=== PATIENT | female | born 1945 | race Caucasian/White ===

== ENCOUNTER 2019-09-03 11:28 | Outpatient (CLI) | payer MEDICARE, OTHER, SELFPAY ==
--- NOTE | 2019-09-03 11:42 | XR_ITS ---
WS: [id number] ABDOMEN Supine view of the abdomen CLINICAL INFORMATION: ABD PAIN, EPIGASTRIC COMPARISON: None. FINDINGS: Scattered air normal caliber small and large bowel. No significant bowel distention. Mild lumbar cur ve convex right. Mild constipation. XR/XR abdomen 1V* [id number] IMPRESSION: Mild constipation.
--- NOTE | 2019-09-03 11:42 | XR_ITS ---
WS: [id number] PROCEDURE: XR chest 2V* [id number] CLINICAL INFORMATION: ABD PAIN, EPIGASTRIC COMPARISON: January 24, 2019 FINDINGS: Heart: Cardiomegaly with esophageal hiatal hernia and air-fluid level. Cholecystectomy clips. Lungs: Lungs are clear. No consolidation or pleural fluid. Chronic emphysematous changes. Bones: Normal visualized bony structures. XR/XR chest 2V* [id number] IMPRESSION: 1. Cardiomegaly with esophageal hiatal hernia and air-fluid level. This is unc hanged since 2019. 2. Chronic emphysematous changes. No acute-appearing pulmonary infiltrates.
== END 2019-09-03 11:29 | disposition home or self-care (01) ==
LOC: RADWPI 11:34
PROVIDERS: Family Provider Electrodiagnostic Medicine; PCP Electrodiagnostic Medicine; Visit Provider Electrodiagnostic Medicine
DX: K25.9 Gastric ulcer, unspecified as acute or chronic, without hemorrhage or perforation (principal); I51.7 Cardiomegaly; K44.9 Diaphragmatic hernia without obstruction or gangrene; J43.9 Emphysema, unspecified; K59.00 Constipation, unspecified; R10.13 Epigastric pain
CPT/HCPCS: 71046; 74018

== ENCOUNTER 2020-02-17 13:47 | Outpatient (CLI) | payer MEDICARE, OTHER, SELFPAY ==
--- NOTE | 2020-02-17 13:55 | MM_ITS ---
WS: [id number] BILATERAL SCREENING DIGITAL MAMMOGRAM WITH CAD HISTORY: SCREENING COMPARISON: 10/27/2018 and 11/15/2016 Bilateral CC and MLO views submitted. Computer aided detection analyzed. Breast composition: There are scattered areas of fibroglandular density. No suspicious masses, microc alcifications or architectural distortion. Benign calcifications RIGHT breast. MM/[place] [id number] IMPRESSION: BI-RADS: 2-Benign FOLLOW UP: 1 Year Follow-up
== END 2020-02-17 13:48 | disposition home or self-care (01) ==
PROVIDERS: PCP Electrodiagnostic Medicine; Visit Provider Electrodiagnostic Medicine
DX: Z12.31 Encounter for screening mammogram for malignant neoplasm of breast (principal)
CPT/HCPCS: 77067

== ENCOUNTER 2020-10-19 20:00 | Outpatient (CLI) | payer MEDICARE, OTHER, SELFPAY | END 2020-10-19 20:01 | disposition home or self-care (01) | LOC: SLEEP 10-20 08:39 | PROVIDERS: PCP Electrodiagnostic Medicine; Visit Provider Electrodiagnostic Medicine | DX: G47.33 Obstructive sleep apnea (adult) (pediatric) (principal) | CPT/HCPCS: 95810 ==

== ENCOUNTER 2021-03-30 08:59 | Outpatient (CLI) | payer MEDICARE, OTHER, SELFPAY ==
--- NOTE | 2021-03-30 09:07 | MM_ITS ---
WS: [id number] BILATERAL DIGITAL SCREENING MAMMOGRAPHY WITH CAD CLINICAL INFORMATION: SCREENING HISTORY: Screening mammogram. No current complaints. COMPARISON: February 17, 2020 TECHNIQUE: Bilateral CC and MLO views. FINDINGS: Scattered fibroglandular densities bilaterally. No suspicious focal mass, asymmetry, calcifications, or architectural distortion. No evidence of malignancy. A few tiny punctate calcifications. MM/[place] [id number] IMPRESSION: BI-RADS: 2-Benign FOLLOW UP: 1 Year Follow-up Recommend return to annual screening mammography.
== END 2021-03-30 09:00 | disposition home or self-care (01) ==
LOC: RADSHAW 09:04
PROVIDERS: PCP Electrodiagnostic Medicine; Visit Provider Electrodiagnostic Medicine
DX: Z12.31 Encounter for screening mammogram for malignant neoplasm of breast (principal)
CPT/HCPCS: 77067

== ENCOUNTER 2021-06-27 08:58 | Emergency (ER) | payer MEDICARE, OTHER, SELFPAY ==
--- NOTE | 2021-06-27 09:06 | W.ED.GENADLT ---
HPI - General Adult General: Chief complaint: Dizziness Stated complaint: VERTIGO, NAUSEA, BRADYCARDIA Time Seen by Provider: 06/27/21 09:04 History of Present Illness: HPI narrative: 76-year-old female presents to the emergency room with sudden onset of dizziness and nausea vertiginous-like symptoms. She notes that it is brought on by turning her head to the right. She notes that she turns her head just past the midline to the left electively relieve her symptoms. She has not had any difficulty with speech swallowing or vision. When she has these episodes she does have some difficulty with balance because of the vertiginous symptoms. We were able to reproduce the symptoms during exam when she turned her head to the right when she was able to relieve them by turning the head back to the left just past the midline. He denies any chest pain denies any headache. Onset (ago): minute(s) Severity: mild Relieving factors: none Exacerbating factors: none Associated symptoms: Deny chest pain, confusion, cough, diaphoresis, decreased appetite, dyspnea, fevers/chills, headache(s), malaise, nausea, rash, palpitations, seizures, short of breath, syncope, vomiting or weakness Review of Systems Const: Denies: malaise or diaphoresis Card: Denies: chest pain, palpitations or syncope Resp: Denies: dyspnea GI: Denies: nausea or vomiting Skin/Breast: Denies: rash Neuro: Denies: headache(s) or confusion [facility] ED PFSH: Medical History (Updated 06/27/21 @ 10:32 by Paul Ibanez DO) BPPV (benign paroxysmal positional vertigo) Hypothyroidism Surgical History (Updated 06/27/21 @ 09:49 by Paul Ibanez DO) H/O partial thyroidectomy Social History (Updated 06/27/21 @ 09:49 by Paul Ibanez DO) Smoking and tobacco status: never smoked Alcohol intake: never Physical Exam Const: COMMON NORMALS: no acute distress GENERAL APPEARANCE: cooperative and comfortable ORIENTATION/CONSCIOUSNESS: Yes awake, Yes oriented to person, Yes oriented to place and Yes oriented to time HENMT: COMMON NORMALS: normocephalic, atraumatic and hearing grossly normal bilaterally HEAD & SCALP: normocephalic and atraumatic Neck/C-Spine: COMMON NORMALS: no JVD Resp: COMMON NORMALS: normal respiratory effort, No retractions, No use of accessory muscles and clear to auscultation bilaterally AUSCULTATION: clear to auscultation bilaterally Cardio: COMMON NORMALS: no JVD, regular rate, regular rhythm and No murmurs present (Cardio) RATE: regular rate RHYTHM: regular rhythm GI: COMMON NORMALS: Soft to palpation and No hepatosplenomegaly present AUSCULTATION: Yes normoactive bowel sounds PALPATION: Yes Soft to palpation, No Tenderness to palpation present (GI), No Guarding due to palpation present (GI) and Yes No hepatosplenomegaly present Extremity: COMMON NORMALS: normal to inspection, capillary refill normal, no clubbing, cyanosis or edema, no calf tenderness and no pedal edema Neuro: SENSORIUM/ORIENTATION: Yes oriented to person, Yes oriented to place and Yes oriented to time Skin: COMMON NORMALS: no rashes or lesions noted GENERAL SKIN EXAM: no rashes or lesions noted Course Vital Signs: Vital signs: Vital Signs Pulse Rate 113 H 06/27/21 10:42 Respiratory Rate 20 H 06/27/21 10:42 Blood Pressure 109/67 06/27/21 10:42 Pulse Oximetry 92 06/27/21 10:42 MDM - General Adult MDM Narrative: Medical decision making narrative: Symptoms reproducible during exam with motion of the head. Ativan is completely resolved symptoms. [place] discharge patient home is meclizine or Ativan as needed for subcu bruit follow-up with primary care. Lab Data: Labs: Lab Results 06/27/21 06/27/21 09:18 09:18 WBC 5.3 10^3/uL 10^3/ uL (4.0-10.0) RBC 4.13 10^6/uL 10^6 /uL (4.1-5.3) Hgb 13.0 g/dL g/dL (11.5-15.3) Hct 38.1 % % (37.0-47.0) MCV 92.3 fl fl (81-99) MCH 31.5 pg pg (28.0-34.0) MCHC 34.1 g/dL g/dL (30.0-36.0) RDW 12.6 % % (12.1-15.1) Plt Count 238 10^3/cmm 10^3 /cmm (130-400) MPV 9.6 fL fL (7.4-10.4) Neut % (Auto) 72.2 % % Lymph % (Auto) 20.0 % % [place] % (Auto) 5.3 % % Eos % (Auto) 1.5 % % Baso % (Auto) 0.8 % % Neut # (Auto) 3.83 10^3/uL 10^3 /uL (1.8-7.7) Lymph # (Auto) 1.1 10^3/uL 10^3/ uL (0.8-4.8) [place] # (Auto) 0.3 10^3/uL 10^3/ uL (0.2-0.9) Eos # (Auto) 0.1 10^3/uL 10^3/ uL (0.0-0.8) Baso # (Auto) 0.0 10^3/uL 10^3/ uL (0.0-0.1) Nucleated RBC % (a uto) 0 % % Nucleated RBCs # 0.0 /100WBC /100W BC Sodium 139 mmol/L mmol/L (136-145) Potassium 4.0 mmol/L mmol/L (3.5-5.1) Chloride 107 mmol/L mmol/L (98-107) Carbon Dioxide 19 mmol/L L mmol/ L (22-29) Anion Gap 17.0 (5-19) BUN 16 mg/dL mg/dL (8-23) Creatinine 0.9 mg/dL mg/dL (0.5-0.9) GFR Calculation Not Reportable Glucose 91 mg/dL mg/dL (65-115) Calculated Osmolal ity 289 mOsm/kg mOsm/ kg (285-295) Calcium 8.4 mg/dL L mg/dL (8.5-10.5) Discharge Plan Discharge Patient Disposition: Home Clinical Impression: BPPV (benign paroxysmal positional vertigo) Condition: Stable Prescriptions: New meclizine 25 mg tablet 25 mg PO QID PRN (Reason: dizziness) Qty: 30 RF: 0 Ativan 2 mg tablet 1 - 2 mg PO Q8H PRN (Reason: dizziness or vertigo) Qty: 20 RF: 0 Discharge Orders: Discharge ED (Routine); Ordered 06/27/21 Ordered By: Paul Ibanez Referrals: Dionicio Valentine, DO [Primary Care Provider] - Discharge Diet: Regular Discharge Activity: Limit activity as instructed Patient Instructions: Opioid Safety Activity Restrictions/Additional Instructions: Follow-up with your primary care doctor return to the emergency room if you are not improving or have any worsening of your symptoms. Coding Level of Care Code ED Distributor Advertising Material for Zoey Fwd Exam Comprehensive
[2021-06-27 09:07] VITALS: BP 139/72; PULSE 59; RESP 19; O2SAT 98; BMI 25.8
[2021-06-27] MEDS: LORazepam 2 mg/mL INJ 1 mL 1 MG IVP (09:20)
[2021-06-27 09:52] LABS: Basophils % 0.8 %; Eosinophils # 0.1 10^3/uL (0.0-0.8); Eosinophils % 1.5 %; Hematocrit 38.1 % (37.0-47.0); Lymphocytes # 1.1 10^3/uL (0.8-4.8); Mean Corpuscular HGB Conc 34.1 g/dL (30.0-36.0); Mean Corpuscular Hemoglobin 31.5 pg (28.0-34.0); Mean Corpuscular Volume 92.3 fl (81-99); Mean Platelet Volume 9.6 fL (7.4-10.4); Monocytes # 0.3 10^3/uL (0.2-0.9); Monocytes % 5.3 %; Neutrophils # 3.83 10^3/uL (1.8-7.7); Neutrophils % 72.2 %; Nucleated Red Blood Cells % 0 %; Platelet Count 238 10^3/cmm (130-400); Red Blood Count 4.13 10^6/uL (4.1-5.3); Red Cell Distribution Width 12.6 % (12.1-15.1); White Blood Count 5.3 10^3/uL (4.0-10.0)
[2021-06-27 10:02] LABS: Blood Urea Nitrogen 16 mg/dL (8-23); Calcium 8.4 mg/dL (8.5-10.5); Carbon Dioxide 19 mmol/L (22-29); Chloride 107 mmol/L (98-107); Glucose 91 mg/dL (65-115); Osmolality Calculated 289 mOsm/kg (285-295); Sodium 139 mmol/L (136-145)
[2021-06-27 10:42] VITALS: BP 109/67; PULSE 113; RESP 20; O2SAT 92
--- NOTE | 2021-06-27 10:56 | PC.NURSE ---
discharge instructions reviewed with patient and , both verbalize understanding of instructions, prescriptions and follow up appt. pt taken to lobby via wheelchair
== END 2021-06-27 11:17 | disposition home or self-care (01) ==
PROVIDERS: Emergency Provider Family Medicine; PCP Electrodiagnostic Medicine
DX: H81.10 Benign paroxysmal vertigo, unspecified ear (principal)
CPT/HCPCS: 80048; 85025; 96374; 99283; J2060

== ENCOUNTER 2021-07-05 20:00 | Outpatient (CLI) | payer MEDICARE, OTHER, SELFPAY | END 2021-07-05 20:01 | disposition home or self-care (01) | LOC: SLEEP 07-06 08:58 | PROVIDERS: PCP Electrodiagnostic Medicine; Visit Provider Electrodiagnostic Medicine | DX: G47.33 Obstructive sleep apnea (adult) (pediatric) (principal) | CPT/HCPCS: 95811 ==

== ENCOUNTER 2021-11-20 06:00 | Outpatient (RCR) | payer MEDICARE, OTHER, SELFPAY | END 2021-11-28 23:59 | disposition home or self-care (01) | LOC: APT 06:00 | PROVIDERS: PCP Electrodiagnostic Medicine; Referring Provider Electrodiagnostic Medicine; Visit Provider Electrodiagnostic Medicine | DX: M75.81 Other shoulder lesions, right shoulder (principal) | CPT/HCPCS: 97110; 97162 ==

== ENCOUNTER 2021-11-29 06:00 | Outpatient (RCR) | payer MEDICARE, OTHER, SELFPAY | END 2021-12-28 23:59 | disposition home or self-care (01) | LOC: APT 06:00 | PROVIDERS: PCP Electrodiagnostic Medicine; Referring Provider Electrodiagnostic Medicine; Visit Provider Electrodiagnostic Medicine | DX: M75.81 Other shoulder lesions, right shoulder (principal) | CPT/HCPCS: 97110; 97140 ==

== ENCOUNTER 2022-04-09 09:48 | Outpatient (CLI) | payer MEDICARE, OTHER, SELFPAY ==
--- NOTE | 2022-04-09 09:56 | MM_ITS ---
WS: [id number] SCREENING DIGITAL TOMOSYNTHESIS MAMMOGRAM WITH CAD HISTORY: SCREENING COMPARISON: 03/30/2021 and 02/17/2020 Bilateral CC and MLO with tomosynthesis views submitted. Synthetic mammography reviewed. Computer aid ed detection analyzed. Breast composition: There are scattered areas of fibroglandular density. No suspicious masses, microc alcifications or architectural distortion. Benign calcifications scattered throughout the RIGHT breas t. Only a small portion of the RIGHT pectoralis muscle has been included. MM/[place] [id number] IMPRESSION: BI-RADS: 2-Benign FOLLOW UP: 1 Year Follow-up
== END 2022-04-09 09:49 | disposition home or self-care (01) ==
LOC: RAD 09:48
PROVIDERS: PCP Electrodiagnostic Medicine; Visit Provider Physician Assistant
DX: Z12.31 Encounter for screening mammogram for malignant neoplasm of breast (principal)
CPT/HCPCS: 77063; 77067

== ENCOUNTER 2022-05-02 06:00 | Outpatient (RCR) | payer MEDICARE, OTHER, SELFPAY | END 2022-05-30 23:59 | disposition home or self-care (01) | LOC: APT 06:00 | PROVIDERS: PCP Electrodiagnostic Medicine; Visit Provider Electrodiagnostic Medicine | DX: R42 Dizziness and giddiness (principal) | CPT/HCPCS: 97110; 97112; 97161 ==

== ENCOUNTER 2022-06-25 08:25 | Outpatient (CLI) | payer MEDICARE, OTHER, SELFPAY ==
--- NOTE | 2022-06-25 09:11 | MR_ITS ---
WS: [id number] MRI BRAIN WITHOUT CONTRAST HISTORY: OCCULAR MIGRAINE COMPARISON: None available. TECHNIQUE: Diffusion imaging, multiplanar T1, T2 and FLAIR imaging obtained. No evidence for acute infarct or hemorrhage. Negron-white matter differentiation is normal. Mild atrophy and small vessel ischemic disease. No prior infarct. Ventricles and extra-axial spaces are normal. No inferior displacement of cerebellar tonsils. 5 x 6 mm mass which follows CSF on all sequences just above the pituitary gland and the pituitary stalk is not identifiable. No significant mass effect. Dural venous sinuses and wainwright of [place] demonstrate no abnormality on this unenhanced studies. Paranasal sinuses: Clear. Mastoid air cells: Normal. Calvarium and scalp: Intact. MR/MR head wo con* [id number] IMPRESSION: 1. No acute infarct or hemorrhage. 2. Mild atrophy and mild small vessel ischemic disease. Small vessel ischemic disease can be seen with migraines, hypertension, smoking and diabetes. 3. Small mass measuring 5 x 6 mm follows CSF on all sequences in the suprasell ar cistern. Suggest additional evaluation by MRI. MRI of the pituitary gland wi th and without contrast recommended. Differential includes Rathke cleft cyst or cystic craniopharyngioma. Does not appear to be part of the sphenoid sinus. Hi gh-resolution imaging through the pituitary gland will further define the locat ion and characteristics.
== END 2022-06-25 08:26 | disposition home or self-care (01) ==
LOC: RAD 08:25
PROVIDERS: PCP Electrodiagnostic Medicine; Visit Provider Electrodiagnostic Medicine
DX: G43.809 Other migraine, not intractable, without status migrainosus (principal); G31.9 Degenerative disease of nervous system, unspecified; I67.82 Cerebral ischemia
CPT/HCPCS: 70551

== ENCOUNTER 2022-09-19 08:27 | Outpatient (CLI) | payer MEDICARE, OTHER, SELFPAY ==
--- NOTE | 2022-09-19 08:44 | MR_ITS ---
WS: [id number] MRI HEAD WITHOUT AND WITH CONTRAST WITH ATTENTION TO THE PITUITARY. TECHNIQUE: Sagittal T1, T2 axial, T2 axial FLAIR, axial susceptibility weighted imaging, axial diffus ion weighted images, and coronal T2 images were obtained. Pre and post-T1 axial and post T1 coronal i mages. ADC and FSPGR images. High-resolution imaging of the pituitary. Post gadolinium imaging was ob tained of the pituitary. CLINICAL INFORMATION: BRAIN MASS COMPARISON: MRI June 25, 2022 FINDINGS: High-resolution pituitary imaging demonstrates normal enhancing pituitary tissue today in t he dependent sella. Previously described cystic lesion appears to represent normal CSF today on the h igh-resolution imaging. Pituitary infundibulum is midline. No evidence of sellar or suprasellar mass. Normal cavernous sinuses and Meckel's cave. No evidence of restricted diffusion to suggest acute ischemia. Ventricular system and basal cisterns are patent. Mild small vessel changes. Moderate parenchymal volume loss. Normal posterior fossa. Norm al vascular flow voids at the skull base. No extra axial fluid collections. Mild mucosal thickening i n the paranasal sinuses. Mastoid air cells well aerated. Normal posterior nasopharynx and parapharyng eal fat. Tiny chronic lacunar infarct RIGHT cerebellum. No hemosiderin on the susceptibility weighted images.. Mild symmetric atrophy temporal lobes and chelsie ocampal formations. Normal cavernous sinuses and Meckel's cave. No abnormal gadolinium enhancement. N ormal visualized dural venous sinuses. MR/MR pituitary wo/w con* [id number] IMPRESSION: 1. High-resolution pituitary imaging demonstrates no suspicious pituitary mass or lesion today. Previously described cystic lesion appears to represent charity l CSF in the sella. Normal enhancing pituitary tissue seen today. No evidence o f sellar or suprasellar mass. 2. Normal optic chiasm and pituitary infundibulum. 3. No restricted diffusion to suggest acute ischemia. 4. Tiny chronic lacunar infarct RIGHT cerebellum. 5. Mild small vessel changes with moderate parenchymal volume loss. 6. No other suspicious findings.
[2022-09-19] MEDS: gadobenate dimeglumine 20 mL vial IV (09:38)
== END 2022-09-19 08:28 | disposition home or self-care (01) ==
PROVIDERS: PCP Electrodiagnostic Medicine; Visit Provider Electrodiagnostic Medicine
DX: G93.89 Other specified disorders of brain (principal); I63.81 Other cerebral infarction due to occlusion or stenosis of small artery
CPT/HCPCS: 70553; A9577

== ENCOUNTER → 2022-11-08 10:40 | Outpatient (BNVA) | payer MEDICARE, OTHER, SELFPAY | PROVIDERS: PCP Electrodiagnostic Medicine; Referring Provider Electrodiagnostic Medicine; Visit Provider Psychiatry & Neurology Neurology | DX: G45.1 Carotid artery syndrome (hemispheric) (principal); G93.89 Other specified disorders of brain; E55.9 Vitamin D deficiency, unspecified; E03.9 Hypothyroidism, unspecified; R93.0 Abnormal findings on diagnostic imaging of skull and head, not elsewhere classified; Z86.73 Personal history of transient ischemic attack (TIA), and cerebral infarction without residual deficits | CPT/HCPCS: 99212 ==

== ENCOUNTER → 2022-11-08 12:26 | Outpatient (BNVA) | payer MEDICARE, OTHER, SELFPAY | PROVIDERS: PCP Electrodiagnostic Medicine; Referring Provider Electrodiagnostic Medicine; Visit Provider Psychiatry & Neurology Neurology | DX: G45.1 Carotid artery syndrome (hemispheric) (principal); G93.89 Other specified disorders of brain; E55.9 Vitamin D deficiency, unspecified; R93.0 Abnormal findings on diagnostic imaging of skull and head, not elsewhere classified; E03.9 Hypothyroidism, unspecified; Z86.73 Personal history of transient ischemic attack (TIA), and cerebral infarction without residual deficits | CPT/HCPCS: 36415; 82306; 82465; 82607; 82746; 83735; 83921 ==

== ENCOUNTER 2022-11-16 12:54 | Outpatient (CLI) | payer MEDICARE, OTHER, SELFPAY ==
--- NOTE | 2022-11-16 13:01 | XR_ITS ---
WS: [id number] SCREENING DEXA SCAN [employer] CLINICAL INFORMATION: POST MENOPAUSAL COMPARISON: 2015 FINDINGS: The L1-L4 bone mineral density measures 1.434 g/cm2. This corresponds to a T score score of 2.1 and Z score of 3.3. Left femoral neck bone mineral density measures 1.073 g/cm2. This corresponds to a T score of 0.5 and Z score of 1.8. Right femoral neck bone mineral density measures 1.072 g/cm2. This corresponds to a T score 0.5of and Z score of 1.8. Mean femoral neck bone mineral density measures 1.072 g/cm2. This corresponds to a T score of 0.5 and Z score of 1.8. XR/XR DEXA axial skeleton* [id number] IMPRESSION: Normal bone mineralization. Patient's FRAX calculated 10 year probability for major osteoporotic fracture i s 11.0 % and osteoporotic hip fracture is 3.2%. Bone mineral density decreased in the lumbar spine -3.9% compared to 2015. Bone mineral density in the femoral necks decreased -8.8% since 2015.
== END 2022-11-16 12:55 | disposition home or self-care (01) ==
LOC: RAD 12:57
PROVIDERS: PCP Electrodiagnostic Medicine; Visit Provider Electrodiagnostic Medicine
DX: Z13.820 Encounter for screening for osteoporosis (principal); Z78.0 Asymptomatic menopausal state
CPT/HCPCS: 77080

== ENCOUNTER 2022-11-21 06:04 | Outpatient (CLI) | payer MEDICARE, OTHER, SELFPAY ==
--- NOTE | 2022-11-21 06:15 | USCV_ITS ---
Casandra Renee Age: 77 Gender: F : 1945 Exam Date: 11/21/2022 06:32 Ordering Phys: Nikita Kaiser MD Technologist: Exam [place] [facility] [place]: tia Risk Factors: Previous Vascular Surgery: Right Brachial BP: / Left Brachial BP: / Right Left Velocity (cm/s) Spectral Plaque Velocity (cm/s) Spectral Plaque Syst/Diast Broadening Syst/Diast Broadening 42.10/ 13.10 Prox CCA 59.20 / 17.10 50.00/ 11.20 Mid CCA 55.20 / 14.50 40.80/ 12.50 Distal CCA 52.25 / 18.40 51.30/ 16.40 Prox ICA 37.70 / 10.10 51.30/ 15.80 Mid ICA 36.80 / 10.10 51.30/ 13.10 Distal ICA 52.90 / 16.00 70.30 ECA 66.40 1.03 ICA/CCA 0.89 Antegrade Vertebral Antegrade 62.40/ 21.70 cm/s 54.00/ 18.00 cm/s Tri Subclavian Tri 69.00 50.70 CONCLUSIONS Right ICA stenosis <50%. Left ICA stenosis <50%. Normal antegrade Doppler flow noted in the right vertebral artery. Normal antegrade Doppler flow noted in the left vertebral artery. Alan Hdez MD (Electronically Signed) Final Date: 21 Nov 2022 13:33 S
--- NOTE | 2022-11-21 06:45 | USCV_ITS ---
Casandra Renee Age: 77 Gender: F : 1945 Exam Date: 11/21/2022 06:19 Ordering Phys: Nikita Kaiser MD Technologist: [place] [facility] [place]: TIA BP: 120 / 72 HR: 53 Rhythm: Sinus Technical Quality: Adequate MEASUREMENTS (Male / Female) Normal Values 2D ECHO LV Diastolic Diameter PLAX 4.4 cm 4.2 - 5.9 / 3.9 - 5.3 cm LV Systolic Diameter PLAX 3.1 cm IVS Diastolic Thickness 1.2 cm 0.6 - 1.0 / 0.6 - 0.9 cm IVS Systolic Thickness 1.3 cm LVPW Diastolic Thickness 1.1 cm 0.6 - 1.0 / 0.6 - 0.9 cm LVPW Systolic Thickness 1.5 cm LVOT Diameter 2.0 cm LV Ejection Fraction 2D Teich 56.9 % LV Ejection Fraction MOD 2C 55.6 % LV Ejection Fraction 2C AL 56.1 % LA Diameter 3.8 cm M-MODE Aortic Annulus Diameter 4.0 cm LA Ao Ratio MM 1.1 MV E Point Septal Separation 1.7 cm DOPPLER AV Peak Velocity 100.0 cm/s LVOT Peak Velocity 88.0 cm/s AV Area Cont Eq vti 2.8 cm squared AV Area Cont Eq pk 2.9 cm squared MV Area PHT 5.0 cm squared Mitral E to A Ratio 0.8 MV E' Velocity 45.0 cm/s Mitral E to MV E' Ratio 10.0 Mitral E to LV E' Lateral Ratio 8.7 Mitral E to LV E' Septal Ratio 11.8 TR Peak Velocity 246.7 cm/s TR Peak Gradient 24.3 mmHg TV Peak E Velocity 93.0 cm/s Right Atrial Pressure 3.0 mmHg Pulmonary Artery Systolic Pressu 27.3 mmHg FINDINGS Left Ventricle Normal left ventricular cavity size. Normal left ventricular wall thickness. Mildly decreased left ventricular systolic function. Left ventricular ejection fraction is estimated at 50- 55 %. There seems to be global hypokinesis. Right Ventricle Normal right ventricular size and systolic function. Right ventricular systolic pressure 44 mmHg. Right Atrium Normal right atrial size. Left Atrium Normal left atrial size. Mitral Valve Moderately thickened mitral valve. No mitral valve stenosis. Mild mitral valve regurgitation. Aortic Valve Structurally normal trileaflet aortic valve. No aortic valve stenosis. Trace to mild aortic valve regurgitation. Tricuspid Valve Structurally normal tricuspid valve. [id number] tricuspid valve regurgitation. Pulmonic Valve Structurally normal pulmonic valve. No pulmonary valve stenosis. Trace pulmonary valve regurgitation. Pericardium No pericardial effusion. Aorta Normal size aortic root and proximal ascending aorta. IVC Normal IVC dimension with >50% respiratory change of the inferior vena cava. CONCLUSIONS 1. Normal left ventricular cavity size and wall thickness. Mildly decreased left ventricular systolic function. Left ventricular ejection fraction is estimated at 50-55 %. There seems to be global hypokinesis. 2. Lwby-mb-mzexxrvk tricuspid valve regurgitation. 3. Mild mitral valve regurgitation. 4. No prior similar studies to compare. Lara Abernathy MD (Electronically Signed) Final Date: 21 Nov 2022 22:38 S
== END 2022-11-21 06:05 | disposition home or self-care (01) ==
LOC: RAD 06:07
PROVIDERS: PCP Electrodiagnostic Medicine; Visit Provider Psychiatry & Neurology Neurology
DX: G45.1 Carotid artery syndrome (hemispheric) (principal); G93.89 Other specified disorders of brain; I08.1 Rheumatic disorders of both mitral and tricuspid valves
CPT/HCPCS: 93306; 93880; 99212

== ENCOUNTER → 2023-01-09 12:29 | Outpatient (BNVA) | payer MEDICARE, OTHER, SELFPAY | PROVIDERS: PCP Electrodiagnostic Medicine; Visit Provider Psychiatry & Neurology Neurology | DX: R93.0 Abnormal findings on diagnostic imaging of skull and head, not elsewhere classified (principal); R53.83 Other fatigue; Z86.73 Personal history of transient ischemic attack (TIA), and cerebral infarction without residual deficits; I51.89 Other ill-defined heart diseases; E89.0 Postprocedural hypothyroidism | CPT/HCPCS: 99212 ==

== ENCOUNTER → 2023-02-13 13:42 | Outpatient (BNVA) | payer MEDICARE, OTHER, SELFPAY | PROVIDERS: PCP Electrodiagnostic Medicine; Visit Provider Internal Medicine | DX: R07.9 Chest pain, unspecified (principal) | CPT/HCPCS: 93005; 99204 ==

== ENCOUNTER 2023-04-11 08:46 | Outpatient (CLI) | payer MEDICARE, OTHER, SELFPAY ==
--- NOTE | 2023-04-11 10:15 | MM_ITS ---
WS: [id number] SCREENING DIGITAL TOMOSYNTHESIS MAMMOGRAM WITH CAD HISTORY: SCREENING COMPARISON: 04/09/2022 and 03/30/2021 Bilateral CC and MLO with tomosynthesis views submitted. Synthetic mammography reviewed. Computer aid ed detection analyzed. Breast composition: There are scattered areas of fibroglandular density. No suspicious masses, microc alcifications or architectural distortion. Benign calcifications RIGHT breast. IMPRESSION: MM/[place] [id number] BI-RADS: 2-Benign FOLLOW UP: 1 Year Follow-up
== END 2023-04-11 08:47 | disposition home or self-care (01) ==
LOC: RAD 08:47
PROVIDERS: PCP Electrodiagnostic Medicine; Visit Provider Electrodiagnostic Medicine
DX: Z12.31 Encounter for screening mammogram for malignant neoplasm of breast (principal)
CPT/HCPCS: 77063; 77067

== ENCOUNTER 2023-10-03 08:18 | Outpatient (CLI) | payer MEDICARE, OTHER, SELFPAY ==
--- NOTE | 2023-10-03 08:45 | USCV_ITS ---
Casandra Renee Age: 78 Gender: F : 1945 Exam Date: 10/03/2023 08:29 Ordering Phys: Carlos Adame M.D ([email or web address]) Technologist: Exam Location: [facility] [place]ication: chest pain BP: 120 / 66 HR: 67 Rhythm: Sinus Technical Quality: Adequate MEASUREMENTS (Male / Female) Normal Values 2D ECHO LV Diastolic Diameter PLAX 5.1 cm 4.2 - 5.9 / 3.9 - 5.3 cm IVS Diastolic Thickness 0.9 cm 0.6 - 1.0 / 0.6 - 0.9 cm IVS Systolic Thickness 1.2 cm LVPW Diastolic Thickness 0.9 cm 0.6 - 1.0 / 0.6 - 0.9 cm LVPW Systolic Thickness 1.5 cm LVOT Diameter 2.0 cm LV Ejection Fraction 2D Teich 48.7 % LV Ejection Fraction MOD 2C 33.2 % LV Ejection Fraction 2C AL 30.5 % LA Diameter 3.3 cm RA Systolic Volume 4C AL 23.3 ml RA Systolic Volume 4C MOD 23.6 ml Aorta at Sinotubular Diameter 3.8 cm IVC Diameter 1.8 cm M-MODE LA Ao Ratio MM 0.0 AV Cusp Separation MM 2.4 cm DOPPLER AV Peak Velocity 96.0 cm/s LVOT Peak Velocity 63.0 cm/s AV Area Cont Eq vti 2.0 cm squared AV Area Cont Eq pk 2.1 cm squared MV Peak Velocity 104.0 cm/s MV Area PHT 2.5 cm squared Mitral E to A Ratio 1.0 TV Peak Velocity 103.8 cm/s TR Peak Velocity 258.5 cm/s TR Peak Gradient 26.7 mmHg TR Mean Velocity 223.0 cm/s TR Mean Gradient 21.2 mmHg TR Velocity Time Integral 106.3 cm TV Peak E Velocity 52.0 cm/s Right Atrial Pressure 3.0 mmHg Pulmonary Artery Systolic Pressu 29.7 mmHg RV Ejection Time 0.4 s FINDINGS Left Ventricle Left ventricle is normal size. LV systolic function is mildly reduced with EF of 45 to 50%. Mild global hypokinesis. Right Ventricle Normal in size and function Right Atrium Normal in size Left Atrium Normal in size Mitral Valve Structurally normal mitral valve. Mild mitral regurgitation Aortic Valve Structurally normal aortic valve. Trace aortic regurgitation. No significant stenosis. Tricuspid Valve Mild to moderate tricuspid regurgitation. Pulmonary artery systolic pressure is normal Pulmonic Valve Not well-visualized. Pericardium Normal Aorta Ascending aorta is dilated with diameter of 3.99 cm. IVC Appears to be normal CONCLUSIONS LV systolic function is mildly reduced with EF of 45 to 50%. Mild mitral regurgitation Trace aortic regurgitation Mild to moderate tricuspid regurgitation Ascending aorta is dilated with diameter of 3.9 cm. Compared to prior echocardiogram from 2022, LV systolic function decreased mildly. Ascending aorta is also dilated on current study. Carlos Adame MD (Electronically Signed) Final Date: 12 October 2023 20:00 S
== END 2023-10-03 08:19 | disposition home or self-care (01) ==
LOC: RAD 08:18
PROVIDERS: PCP Electrodiagnostic Medicine; Visit Provider Internal Medicine
DX: I08.1 Rheumatic disorders of both mitral and tricuspid valves (principal); I77.819 Aortic ectasia, unspecified site
CPT/HCPCS: 93306

== ENCOUNTER → 2023-11-13 12:34 | Outpatient (BNVA) | payer MEDICARE, OTHER, SELFPAY | PROVIDERS: PCP Family Medicine; Visit Provider Internal Medicine | DX: I51.89 Other ill-defined heart diseases (principal); R53.83 Other fatigue | CPT/HCPCS: 99214 ==

== ENCOUNTER → 2023-11-18 13:01 | Outpatient (BNVA) | payer MEDICARE, OTHER, SELFPAY | PROVIDERS: PCP Family Medicine; Visit Provider Family Medicine | DX: E03.9 Hypothyroidism, unspecified (principal); R41.89 Other symptoms and signs involving cognitive functions and awareness; R41.3 Other amnesia | CPT/HCPCS: 80053; 82607; 84443 ==

== ENCOUNTER 2023-11-21 12:55 | Outpatient (CLI) | payer MEDICARE, OTHER, SELFPAY ==
--- NOTE | 2023-11-21 13:00 | CT_ITS ---
WS: [id number] CTA THORACIC AORTA WITH AND WITHOUT CONTRAST HISTORY: Thoracic Aneurysm TECHNIQUE: CT imaging of the thorax is performed with and without contrast. After noncontrast imaging is performed, CT angiogram is performed during injection of Omnipaque 350; 100 mL IV.. Sagittal and coronal reconstructions, sagittal and coronal MIP imaging is submitted. All CT scans at [facility] use at least one of these dose optimization techniques: automated exposure control; mA and/or k V adjustment per patient size (includes targeted exams where dose is matched to clinical indication); or iterative reconstruction. DLP: 563.84 mGy.cm COMPARISON: 06/15/2014 Good contrast opacification of the thoracic aorta. There is minimal ectasia of the ascending aorta. M aximum diameter is 3.5 cm. Sinus of Valsalva 4.1 cm. Sinotubular junction is 2.7 cm. No dissection. T here is mild plaque. Normal descending thoracic aorta. Pulmonary artery is slightly prominent. This t here is mild dilatation of the RIGHT pulmonary artery to 2.9 cm. Mild RIGHT heart enlargement. No RIGHT heart strain. No thrombus in the LEFT atrial appendage. Lungs are clear. No pneumonia. Large portion of the stomach is intrathoracic. There is no obstruction from the stomach. No mediastin al or hilar adenopathy. Great vessels are normal. LEFT vertebral artery arises directly from the arch . Hepatic cysts. 12 mm stable LEFT adrenal adenoma. Prior cholecystectomy. Mild dilatation of the commo n bile duct is physiologic. Mild increase in thoracic kyphosis. Sclerotic focus in the manubrium is s table since 2013. The large RIGHT thyroid goiter previously described in 2014 is not evident today and may've been surg ically removed. CT/CT angio chest [id number] IMPRESSION: 1. Mildly ectatic but not aneurysmal thoracic aorta to 3.5 cm. 2. No aortic dissection. 3. Mildly dilated RIGHT pulmonary artery to 2.9 cm. 4. No mass. 5. Previously described RIGHT substernal thyroid goiter is no longer present a nd appears to been surgically removed. 6. Hepatic cysts and prior cholecystectomy. 7. Stable LEFT adrenal adenoma.
[2023-11-21] MEDS: iohexol 350 mg/mL 500 mL Btl (per mL) IV (13:41)
== END 2023-11-21 12:56 | disposition home or self-care (01) ==
LOC: RAD 12:55
PROVIDERS: PCP Family Medicine; Visit Provider Internal Medicine
DX: I71.20 Thoracic aortic aneurysm, without rupture, unspecified (principal); K76.89 Other specified diseases of liver; Z90.49 Acquired absence of other specified parts of digestive tract; D35.02 Benign neoplasm of left adrenal gland
CPT/HCPCS: 71275; Q9967

== ENCOUNTER 2023-11-22 08:47 | Outpatient (CLI) | payer MEDICARE, OTHER, SELFPAY ==
--- NOTE | 2023-11-22 | ECG_ITS ---
[facility] Test Date: 2023-11-22 Pat Name: Casandra Renee Department: Room: Gender: Female Manager Embalmer Funeral Director: : 1945 Requested By: Carlos Adame Order Number: [id number] Reading MD: Interpretive Statements Lung unchanged pre/post procedure; Intraprocedure shortess of breath; Symptoms resoled by discharge [email or web address]
--- NOTE | 2023-11-22 09:20 | NMCV_ITS ---
NM hans perf SPECT r/s* [id number] Casandra Renee Age: 78 Gender: F : 1945 Exam Date: 11/22/2023 09:49 Ordering Phys: Carlos Adame M.D ([email or web address]) Technologist: FILIPPO Dominguez Exam Location: [facility] Indications: CHEST PAIN STRESS TEST Please see separate stress test report in [facility] for full findings IMAGE PROTOCOL Rest/Stress 1 Exercise Day Radiopharmaceutical Dose (mCi) Administration Site Administered by Rest: Tc-99m 10.9 IV FILIPPO Kramer Sestamiamrita Stress:Tc-99m 32.6 IV FILIPPO Kramer Sestamiamrita Rest: 22-Nov-2023 60 Discovery 630 Stress: 22-Nov-2023 15 Discovery 630 Radiopharmaceutical was injected at 91 % maximum heart rate. Images obtained in supine and prone position. SPECT RESULTS Technical Quality: Excellent Raw Data Analysis: Normal Image Corrections: No attenuation or motion correction applied Summed Stress Score: 2 Summed Rest Score: 12 Summed Difference Score: 0 PERFUSION FINDINGS There is moderate area of perfusion abnormality seen in apical, apical anterior and apical inferior molina. This improves on stress imaging. Likely attenuation artifact. No evidence of ischemia. FUNCTIONAL RESULTS (calculated via Gated SPECT) Stress Image LV EF (%): 79 Stress EDV (mL):105 TID: 0.84 Stress ESV (mL):22 FUNCTIONAL FINDINGS: There is normal left ventricular systolic function. IMPRESSIONS 1. Attenation artifact noted in apical, apical anterior and apical inferior molina. No evidence of ischemia 2. LV systolic function is normal Carlos Adame MD (Electronically Signed) Final Date: 22 Nov 2023 13:02 S
[2023-11-22 09:22] VITALS: BMI 28.0
[2023-11-22 10:51] VITALS: BP 157/62; PULSE 88
== END 2023-11-22 08:48 | disposition home or self-care (01) ==
PROVIDERS: PCP Family Medicine; Visit Provider Internal Medicine
DX: R07.9 Chest pain, unspecified (principal); R06.02 Shortness of breath; R94.39 Abnormal result of other cardiovascular function study
CPT/HCPCS: 36415; 78452; 93017; A9500

== ENCOUNTER → 2024-01-13 10:26 | Outpatient (BNVA) | payer MEDICARE, OTHER, SELFPAY | PROVIDERS: PCP Family Medicine; Visit Provider Family Medicine | DX: M17.12 Unilateral primary osteoarthritis, left knee (principal) | CPT/HCPCS: 73562 ==

== ENCOUNTER → 2024-02-14 09:48 | Outpatient (BNVA) | payer MEDICARE, OTHER, SELFPAY | PROVIDERS: PCP Family Medicine; Visit Provider Physician Assistant | DX: M17.12 Unilateral primary osteoarthritis, left knee (principal); M25.562 Pain in left knee; M25.561 Pain in right knee | CPT/HCPCS: 20610; 73560; 73565; 99203; J3301 ==

== ENCOUNTER 2024-02-14 10:46 | Outpatient (CLI) | payer MEDICARE, OTHER, SELFPAY | END 2024-02-14 10:47 | disposition home or self-care (01) | LOC: SPT 10:47 | PROVIDERS: PCP Family Medicine; Visit Provider Physician Assistant | DX: Z46.89 Encounter for fitting and adjustment of other specified devices (principal); M17.12 Unilateral primary osteoarthritis, left knee; M25.562 Pain in left knee | CPT/HCPCS: L1852 ==

== ENCOUNTER → 2024-03-26 09:38 | Outpatient (BNVA) | payer MEDICARE, OTHER, SELFPAY | PROVIDERS: PCP Family Medicine; Visit Provider Physician Assistant | DX: M17.12 Unilateral primary osteoarthritis, left knee (principal) | CPT/HCPCS: 99214 ==

== ENCOUNTER → 2024-04-10 08:17 | Outpatient (BNVA) | payer MEDICARE, OTHER, SELFPAY | PROVIDERS: PCP Family Medicine; Visit Provider Family Medicine | DX: E03.9 Hypothyroidism, unspecified (principal); K31.9 Disease of stomach and duodenum, unspecified; R42 Dizziness and giddiness; R53.83 Other fatigue | CPT/HCPCS: 80053; 82607; 84443; 85025; 86008 ==

== ENCOUNTER 2024-04-15 08:14 | Outpatient (CLI) | payer MEDICARE, OTHER, SELFPAY ==
--- NOTE | 2024-04-15 08:16 | MM_ITS ---
WS: [id number] Bilateral screening 3D tomosynthesis digital mammogram, 04/15/2024 8:41 AM Clinical Data: SCREENING Comparison: 04/11/2023, 04/09/2022, 03/30/2021, 02/17/2020, 10/27/2018, 11/15/2016, 10/18/2015, 10/06/2014, 10/05/2013, 12/25/2010, 12/22/2009, 12/14/2008, 09/09/2007, 09/05/2006. Findings: No spiculated masses or clustered calcifications are seen. There are no secondary signs of carcinoma . There are mole markers on both breasts. MM/MM scr BI tomosynthesis [id number] Impression: Negative bilateral mammogram unchanged. Recommend annual screening mammograms. BIRADS: 1 - Negative. FOLLOW UP: 1 Year Follow-up DENSITY: The breasts are almost entirely fatty. The CAD time checker was used
== END 2024-04-15 08:15 | disposition home or self-care (01) ==
LOC: RAD 08:15
PROVIDERS: PCP Family Medicine; Visit Provider Family Medicine
DX: Z12.31 Encounter for screening mammogram for malignant neoplasm of breast (principal)
CPT/HCPCS: 77063; 77067

== ENCOUNTER → 2024-04-21 08:58 | Outpatient (BNVA) | payer MEDICARE, OTHER, SELFPAY | PROVIDERS: PCP Family Medicine; Visit Provider Family Medicine | DX: Z91.018 Allergy to other foods (principal) | CPT/HCPCS: 86618; 86666; 86757 ==

== ENCOUNTER 2024-04-30 09:26 | Outpatient (CLI) | payer MEDICARE, OTHER, SELFPAY | END 2024-04-30 09:27 | disposition home or self-care (01) | PROVIDERS: PCP Family Medicine; Visit Provider Internal Medicine | DX: I51.89 Other ill-defined heart diseases (principal); I77.810 Thoracic aortic ectasia; M17.12 Unilateral primary osteoarthritis, left knee | CPT/HCPCS: 93306; 99213 ==

== ENCOUNTER → 2024-05-05 10:13 | Outpatient (BNVA) | payer MEDICARE, OTHER, SELFPAY | PROVIDERS: PCP Family Medicine; Visit Provider Family Medicine | DX: Z01.818 Encounter for other preprocedural examination (principal) | CPT/HCPCS: 80053; 81003; 85025 ==

== ENCOUNTER 2024-05-07 11:43 | Outpatient (CLI) | payer MEDICARE, OTHER, SELFPAY ==
--- NOTE | 2024-05-07 12:00 | CT_ITS ---
WS: [id number] CT [facility]: Noncontrast CT of the LEFT knee to include the LEFT hip and ankle. CLINICAL INFORMATION: LEFT TOTAL KNEE ARTHROPLASTY COMPARISON: None. DLP: 990.[address] scans at [facility] use at least one of these dose optimization techniques: automated e xposure control; mA and/or kV adjustment per patient size (includes targeted exams where dose is matc hed to clinical indication); or iterative reconstruction. FINDINGS: Advanced tricompartment arthritis LEFT knee. Hypertrophic patella. Small suprapatellar effusion. Hype rtrophic changes along the joint line. Vascular calcification. Degenerative arthritis sacroiliac joints. Osteopenia. CT/CT knee [facility] [id number] IMPRESSION: Images obtained for preoperative purposes.
== END 2024-05-07 11:44 | disposition home or self-care (01) ==
LOC: RAD 11:44
PROVIDERS: PCP Family Medicine; Visit Provider Physician Assistant
DX: Z01.818 Encounter for other preprocedural examination (principal); M17.12 Unilateral primary osteoarthritis, left knee; M79.4 Hypertrophy of (infrapatellar) fat pad
CPT/HCPCS: 73700

== ENCOUNTER → 2024-05-13 08:44 | Outpatient (BNVA) | payer MEDICARE, OTHER, SELFPAY | PROVIDERS: PCP Family Medicine; Visit Provider Nurse Practitioner Family | DX: I70.0 Atherosclerosis of aorta (principal); I51.89 Other ill-defined heart diseases | CPT/HCPCS: 99213 ==

== ENCOUNTER 2024-05-18 12:40 | Observation (INO) | payer MEDICARE, OTHER, SELFPAY ==
[2024-05-18] VITALS (18 sets, daily range): BP systolic 102–131; BP diastolic 48–84; PULSE 65–80; RESP 14–24; TEMP 36.1–36.6; O2SAT 92–100; BMI 27.7
[2024-05-18 07:39] LABS: Basophils % 1.1 %; Eosinophils # 0.1 10^3/uL (0.0-0.8); Eosinophils % 2.9 %; Hematocrit 40.6 % (36-47); Lymphocytes # 1.4 10^3/uL (0.8-4.8); Lymphocytes % 38.5 %; Mean Corpuscular HGB Conc 32.8 g/dL (30-55); Mean Corpuscular Volume 97.6 fl (85-98); Mean Platelet Volume 9.8 fL (7.4-10.4); Monocytes # 0.3 10^3/uL (0.2-0.9); Monocytes % 8.6 %; Neutrophils # 1.82 10^3/uL (1.8-7.7); Neutrophils % 48.6 %; Nucleated Red Blood Cells % 0 %; Platelet Count 209 10^3/cmm (157-399); Red Blood Count 4.16 10^6/uL (3.85-5.65); Red Cell Distribution Width 12.7 % (12.1-15.1); White Blood Count 3.74 10^3/uL (3.29-11.43)
[2024-05-18 07:50] LABS: Blood Urea Nitrogen 20 mg/dL (8-23); Calcium 9.4 mg/dL (8.5-10.5); Carbon Dioxide 21 mmol/L (22-29); Chloride 109 mmol/L (98-107); Creatinine Clr Calc Pharmacy 57.9884; Glucose 91 mg/dL (65-115); Osmolality Calculated 294 mOsm/kg (285-295); Sodium 141 mmol/L (136-145)
[2024-05-18 07:53] LABS: Anion Gap 15.5 (5-19); Potassium 4.5 mmol/L (3.5-5.1)
[2024-05-18] MEDS: ketorolac 30 mg/mL INJ IVP (07:54)
[2024-05-18] MEDS: lactated ringers 500 ML IV (07:54)
[2024-05-18] MEDS: acetaminophen 1,000 MG/100 ML PIGGYBACK 400 MG IV ×3 (07:54→23:26)
--- NOTE | 2024-05-18 09:31 | W.PM.OPSUD ---
Surgery/Procedure H&P Update DATE OF PROCEDURE: May 18, 2024 DATE H&P PERFORMED: 04/30/24 H&P UPDATE INFORMATION: I have reviewed H&P completed within last 30 days, I have examined patient prior to procedure and No changes to prior documentation CHANGES TO PREVIOUS DOCUMENTATION: Patient seen and evaluated this morning she has had no change in her overall health since her last visit. She has cleared the preoperative clearance process with Dr. Moreno. Her urine cultures came back as negative and nonpathologic no indications for antibiotics per our preoperative team she is denying any urinary symptoms today. I did discuss with Dr. Moreno about recent office visit with her PCP and at this point in time there is no need for postponing total joint replacement surgery and stable to proceed from their standpoint. All questions been answered I did provide the patient the ins and outs of procedure the risk benefits complication alternatives surgery as well as the postoperative recovery process. Patient understands and agrees to proceed with surgical intervention today. All questions answered at this time. PREOP DIAGNOSIS: Left knee DJD PRIMARY INDICATION FOR PROCEDURE: Left knee DJD PLANNED PROCEDURE: Operation Date: 05/18/24 10:15 Proposed Procedures p Noel Robot Total Knee Arthroplasty(Left) - Elian Carrasco DO
[2024-05-18] MEDS: sodium chloride 0.9% 1,000 ML 30 ML IV (09:49)
--- NOTE | 2024-05-18 09:50 | SUR.PREOP ---
Left knee block done. 30ml ropivicaine. VS: 52bpm, 127/71, 16RR, 98%. Patient on monitors for procedure.
--- NOTE | 2024-05-18 09:52 | P.ANESASSM_ITS ---
Pre-Anesthetic Assessment Height/Weight: Height 1.7 m Weight 80.286 kg Temp Pulse Resp BP Pulse Ox O2 Del Method 97.2 F L 68 17 118/82 100 Room Air 05/18/24 07:12 05/18/24 07:12 05/18/24 07:12 05/18/24 07:12 05/18/24 07:12 05/18/24 07:17 Preop Diagnosis: Left knee DJD Operation Date: 05/18/24 10:15 Proposed Procedures p Noel Robot Total Knee Arthroplasty(Left) - Elian Carrasco DO Familial anesthetic complications: alpha gal Was Beta Hamida taken within 24 hours: N/A Was Clonidine taken within 24 hours: N/A Last intake: Intake Last Liquid Date 05/17/24 Last Liquid Time 17:00 Last Solid Date 05/17/24 Last Solid Time 17:00 Social No alcohol and No tobacco Exam alert, oriented x 3, clear to auscultation bilaterally and regular rate & rhythm Airway Mallampati: Class I CV/HEM EF 45-50% Mild AVR and MVR Metabolic Thyroid Disease Anesthetic Plan ASA status: 3 Anesthesia: Regional (specify below) Risk of > 500 ml blood loss (7ml/kg in children): No Medications/Allergies Home Medications Medication Instructions Recorded Confirmed Last Taken Type meclizine 25 mg tablet 25 mg PO QID PRN dizziness #30 tabs 06/27/21 05/14/24 05/12/24 Rx levothyroxine 75 mcg tablet 75 mcg PO DAILY 11/08/22 05/14/24 05/18/24 History (Levo-T) left knee medial advertising specialist brace #1 ea 02/14/24 05/13/24 Unknown Rx Allergies Allergy/AdvReac Type Severity Reaction Status Date / Time aspirin Allergy Intermediate ADR-Itching Verified 05/14/24 09:06 Alpha-Gal Allergy ADR-Itching Verified 05/18/24 07:36 (Ibfcciklo-Sppor-8,3-Gala calcium carbonate Allergy ADR-Nausea Verified 05/14/24 09:06 ciprofloxacin [From Cipro] Allergy ADR-Nausea Verified 05/14/24 09:06 shellfish derived Allergy ADR-Nausea Verified 05/14/24 09:06 Current Medications Generic Name Dose Route Start Last Admin Trade Name Freq PRN Reason Stop Dose Admin Sodium Chloride 1,000 mls @ 30 mls/hr 05/18/24 07:15 05/18/24 09:49 Sodium Chloride 0.9% IV 05/19/24 07:14 30 mls/hr .Q24H TIM Administration PFSH Anesthesia Medical History Lacunar infarction Hypothyroidism BPPV (benign paroxysmal positional vertigo) Surgical History H/O partial thyroidectomy Social History Smoking and tobacco/nicotine status: never used tobacco/nicotine Alcohol intake: never Data Anesthesia 05/18/24 07:23 05/18/24 07:23 Short CBC 05/18/24 Range/Units 07:23 WBC 3.74 (3.29-11.43) 10^3/uL Hgb 13.30 (11.27-16.99) g/dL Hct 40.6 (36-47) % MCV 97.6 (85-98) fl Plt Count 209 (157-399) 10^3/cmm Neut % (Auto) 48.6 % Neut # (Auto) 1.82 (1.8-7.7) 10^3/uL BMP 05/18/24 07:23 Sodium 141 Potassium 4.5 Chloride 109 H Carbon Dioxide 21 L BUN 20 Creatinine 0.9 Glucose 91 Calcium 9.4 Blood Bank 05/18/24 05/18/24 07:23 07:52 Blood Type Cancelled A Positive Rho(D) Type Cancelled Rh positive Antibody Screen Cancelled Negative Cardiac Studies: 2 Echocardiogram 10/03/23 Sestamibi Stress Test (Cardiology) 11/21
--- NOTE | 2024-05-18 09:53 | ANES.PROC ---
Anesthesia Procedures Procedure/Date: 05/18/24 Nerve Block ^: Nerve Block 1: Main Anesthesia: spinal anesthesia block Time Out Performed: Yes Consent: requested by attending/covering physician, from patient, from other, risks and benefits reviewed and patient agrees to proceed Nerve block location: adductor canal (L) Anesthesia monitors applied: pulse oximetry, EKG, BP cuff and oxygen Nerve block position: supine Anesthetic Used: ropivicaine 0.5% (30 ml) and with decadron (4 mg) Ultrasound used to: recognize landmarks and visualize and ID femerol nerve Nerve Stimulator Used?: No Interscalene/Femoral BLK: 4 stimuplex 21 g needle used for position and inplane approach, visualize local anesthetic spread and no vascular puncture identified Injection: neg aspiration of heme Patient Tolerated Procedure: well Complications: none
[2024-05-18] MEDS: ceFAZolin 2,000 mg SDV 2000 MG IVP ×2 (10:34→17:37)
[2024-05-18] MEDS: tranexamic acid 1,000 mg/10mL SDV 1000 MG IV (10:35)
[2024-05-18] MEDS: ROPivacaine 0.2% Premix 100 mL 200 MG INTRA-ARTI (11:39)
[2024-05-18] MEDS: EPINEPHrine 1 mg/mL INJ XX (11:39)
[2024-05-18] MEDS: ketorolac 30 mg/mL INJ XX (11:39)
[2024-05-18] MEDS: tranexamic acid 1,000 mg/10mL SDV 1000 MG XX (11:39)
--- NOTE | 2024-05-18 12:24 | PM.OP ---
Operative Report Date of procedure: May 18, 2024 Surgeon: Elian Carrasco DO Theater Projectionist: Yves Carrasco PA-C: PA was necessary for assistance in this case with leg positioning retraction and protection of neurovascular structures as well as assistance in implantation wound closure and dressing application. Procedure: Preoperative diagnosis: Left knee degenerative joint disease Post-op diagnosis: Same Procedure done: Left total knee arthroplasty, cemented?robotic assisted Noel Implants: [place] triathlon size 3 femur CR cemented?left [place] triathlon size? 4 tibia universal baseplate cemented [place] triathlon symmetric patella size 31 mm Fred triathlon polyethylene 9mm Surgeon: Elian Carrasco DO Estimated blood?loss: 20 mL Tourniquet 66minutes IV fluids: 1600 mL Urine output: 700 mL Complications: None Condition: stable Disposition: floor Brief History: Patient is a 78-year-old female with with chronic?left knee degenerative joint disease.? Patient has been worked up in the outpatient setting in the orthopedic office at this point time through shared decision making given? niqd-rl-deia arthritis as well as failed conservative treatment, and pt would?like to proceed with a?left total knee arthroplasty.? Through shared decision making elected to proceed with surgical intervention for?left total knee arthroplasty.? We talked about continued conservative treatment and surgical intervention as far as the risk benefits complications alternatives surgical and nonsurgical treatment options.? At this point time understanding patient risks with surgery patient agrees to proceed with surgical intervention.? Once again? risk with surgery include but are not?limited to make it better make it worse blood clot, heart attack, stroke, on the table, infection, injury to nerves or vessels, persistent pain, arthrofibrosis, implant failure.? Understanding these risks patient agrees to proceed with surgical intervention consent was obtained in preop.? All questions answered. Procedure: Patient was seen and evaluated in the preoperative holding area.? Consent was reviewed and signed with patient with plan for?left total knee arthroplasty.? All questions answered.? Correct extremity marked.? Patient seen and evaluated by the anesthesia department and once cleared for surgery was taken back to the operative suite.? Patient was placed into a supine position on the OR table.? All bony prominences were well-padded.? Patient was appropriately secured to the bed.? Patient underwent anesthesia per the anesthesia department.? Patient received spinal anesthesia and? Bailon catheter was placed.? A nonsterile tourniquet was applied to the?left thigh.? At this point in time a final timeout performed.? Patient received appropriate preoperative antibiotics and TXA. Next the?left?lower extremity was then prepped and draped in standard orthopedic fashion. Esmarch tourniquet was used exsanguinate the?left?lower extremity.? Tourniquet was insufflated to 250 mmHg. A standard anterior incision was made over midline of the knee.? Sharp scalpel excision through skin and subcutaneous tissue full-thickness skin flaps were made.? Fascia was elevated off of the extensor retinaculum was stable with medial parapatellar arthrotomy was then made.? The performed standard sequential releases..? Immediately on entry into the joint patient was found to have severe eburnated bone and tricompartmental arthritic changes noted.? With significant osteophyte formation.? Next the the patella was then stuffed and the knee was then flexed.?? Rubi was placed superiorly around the anterior aspect of the femur this was freed of synovium and I subsequently then placed by 2 femur pins to establish my femur arrays for the Noel robot.? These were then placed bicortically and? femur array was then appropriately secured with appropriate visualization.? Next attention was turned towards the tibial rays.? These were then drilled sequentially bicortically in parallel fashion and intraincisional.? I then placed my guide as well as my tibial array on in place.? This was appropriately secured and had excellent visualization with the Noel robot.? Next the tibial checkpoint as well as femur checkpoint were then placed.? At this point time I then subsequently established my head center as well as my medial?lateral malleoli as well as my checkpoints.? Next utilizing standard Noel technology I then mapped out the appropriate points and confirmation points around the femur as well as the tibia in standard fashion.? Once this was then done I then removed all osteophytes in preparation for dynamic testing.? All osteophytes were removed as well as I removed the ACL and the PCL was excised due to its significant tearing and degeneration noted.? At this point time the knee was brought into full extension and we performed our standard evaluation of our gap balancing stressing his?ligaments and extension as well as flexion appropriate adjustments were made to have appropriate gap balancing in both flexion and extension.? This plan for final cuts.? Patient had a 4.5 degree varus deformity and slight flexion contracture this was corrected with her preoperative balance and planning. We get a preoperative plan evaluating our implants which was a size 3 femur and a size 4 tibia.? Next we brought in the Noel robot and sequentially made our femur cuts.? All excess bony cuts were then removed.? Finally we made our tibial cut.? Once this was done a standard PCL retractor was then placed into this position I excised the medial and?lateral meniscus.? The tibial cut was then subsequently removed all excess bony debris was removed.? I then utilized a?[employer] sports [employer] and remove the posterior osteophytes.? At this point time sized the tibia and confirmed this was a size 4.? I utilized our blunt probe to establish rotation of tibial implant.? Once this was done I then placed my tibia size 4 trial in appropriate position and then subsequently placed tibial pins to hold this into place placed a size 9 mm poly as well as a size 3 femur which was appropriately impacted in place knee was then subsequently brought into extension. Trials were then assessed,? this was stable with varus valgus stress in extension as well as had symmetrical translation when brought into flexion demonstrating symmetrical gaps. I had excellent balance gaps in flexion and extension with varus and valgus stresses.? At this point I was satisfied with these implants these were then verified and opened on the back table size 4 tibia, size 3 femur,? size 9 mm polythickness.? We did confirm appropriate gap balancing and stresses as well as alignment utilizing? Noel and were satisfied with this plan.? ?At this point time with my trials in place I then towel clip the patella everted this made appropriate measurements subsequently utilizing freehand technique performed by patellar resurfacing this was confirmed to be appropriate resection and subsequently sized to be a 31 mm symmetric.? My drill peg guides were then clamped and appropriate position and appropriate position in the patella for appropriate tracking and parallel with the joint.? Pegs were drilled trial implant was placed and the knee was then subsequently ranged and found to have excellent patellar tracking.? Femur pegs were then drilled.? All checkpoints as well as guidepins and arrays were removed and appropriate counts made. Satisfied with our tibial placement rotation I then utilized the keel punch and prepped the tibia.? At this point time all of our trial implants were removed.? The wound bed? was thoroughly irrigated and dried and prepped for cementation.? Cement was mixed on the back table.? Once cement was ready this was then covered onto the tibia and the tibial baseplate was then impacted and all excess cement was removed.? Next the polyethylene was then impacted into place on the tibial baseplate.? Next cement was placed onto the femur as well as under the femur implants and impacted in to place and all excess cement was extruded and removed.? Knee was taken into full extension? to clear all excess cement was removed.? Warm saline was placed over the joint.? I then towel clip patella and dried for cementation. cemented the patella into place.? This was all clamped and the cement was allowed to cure.? Thorough irrigation performed with pulse?lavage.? I then placed my periarticular injection while the cement was curing.? Once cured the knee was taken through range of motion and had excellent stability and gaps were balanced in flexion and extension.? Tourniquet was then deflated. hemostasis satisfactory with electrocautery.? Vancomycin powder was placed in the wound bed for antibiotic infection prophylaxis. Next I then subsequently closed the capsule with Ethibond suture as well as a running strata fix suture.? Knee was then taken through range of motion 20 times.? Next the skin was then closed in?layered fashion of running stratifix sutures of deep and subcutenous tissue and skin.? ?closed in flexion and Prineo glue was then placed over the incision this allowed to cure.? Incision was covered with Silverlon, with ABDs soft roll and Moshe wrap.? Patient was then awakened from anesthesia and taken to PACU in stable condition. Disposition: Patient taken to PACU in stable condition will be admitted to the floor for pain control PT/OT weight-bear as tolerated?left?lower extremity dressing changes as needed, DVT prophylaxis. Pain control. Patient will receive appropriate postoperative antibiotics. patient will be seen today by the internal medicine team for medical management.? Patient will follow up with the office in 2 weeks.? Patient understands agrees with current plan.? All questions answered.
--- NOTE | 2024-05-18 12:36 | XR_ITS ---
WS: [id number] Exam: XR knee LT 1-2V [id number] Date/Time of Exam: 05/18/2024 12:36 PM Reason For Exam: post L TKA LEFT total knee prosthesis is in place in excellent position. Postoperative changes in the adjacent s oft tissues. XR/XR knee LT 1-2V [id number] IMPRESSION: 1. LEFT total knee replacement in excellent position.
--- NOTE | 2024-05-18 12:50 | W.PM.BPON ---
Date of Procedure: [May 18, 2024] Surgeon: [Dr. Carrasco DO] Metal Bonding Crib Attendant(s): [Yves Carrasco PA-C] Procedure(s) performed: [Left total knee arthroplasty with Noel robotic assist.] Findings of the procedure(s): [Left knee degenerative joint disease. Procedure went well and as planned] Estimated blood loss: [20 mL] Specimen(s) removed: [N/A] Post-operative diagnosis: [Left knee degenerative joint disease]
--- NOTE | 2024-05-18 12:51 | PM.PACU ---
PACU note Narrative: Patient is a 78-year-old female just underwent left total knee arthroplasty. Pt transferred to PACU in stable condition. Dressing is dry. pt is awake and alert. pt can wiggle toes and plantarflex and dorsiflex foot. pt able to perform straight leg raise, Femoral nerve intact. Distal pulses are palpable toes are warm and well-perfused. Cap refill is normal and under 2 seconds. Sensation to foot is intact. Pain is controlled. Exam: awake Disposition: admitted
--- NOTE | 2024-05-18 13:05 | ANE.PACU2 ---
Inpatient post-anesthesia follow up: Airway intact: Yes Vital signs: Temperature 97.7 F Pulse Rate 73 Respiratory Rate 18 Blood Pressure 124/66 Pulse Oximetry 97 Oxygen Delivery Me thod Room Air Oxygen Flow Rate 1 Fraction of Inspir ed Oxygen Hydration adequate: Yes Nausea and vomiting: No Pain level: 1 Mental status: Baseline
--- NOTE | 2024-05-18 13:16 | PC.NURSE ---
1309 - accepted on to floor per LANG Tatum charge - MARK Thornton pt care at [facility] at 2L - 1st ice to left knee - left knee dressing c/d/i - vs - heart rate 79 - 02 98% 2LNC - 119/57 - temp 97.5 - at side with no distress noted upon this nurse exiting care
[2024-05-18] MEDS: chlorhexidine gluconate 0.12% Btl 473 mL 30 ML MUCOUS MEM ×3 (13:33→20:23)
[2024-05-18] MEDS: lactated ringers 1,000 ML 100 ML IV ×2 (13:33→23:26)
[2024-05-18] MEDS: HYDROmorphone 1 mg/mL INJ 1 mL 0.5 MG IVP ×2 (14:02→21:52)
--- NOTE | 2024-05-18 14:21 | PC.NURSE ---
Oral pain meds pending verification by pharmacy at this time due to patients alpha gal allergy. This nurse has spoke with pharmacy 3x since pt came up to med surg floor regarding this. Gita is going to contact Dr. Carrasco to get an order for liquid hydrocodone. Pt able to take IVP dialudid Q4h in the meantime.
--- NOTE | 2024-05-18 16:29 | P.CONIM_ITS ---
Providers/Reason For Consult 2 Consulting Physician/Specialty*: Frase/Hospitalist Reason for Consult*: Alpha-gal, hypothyroidism Requesting Physician: Danilo Attending Physician: Elian Carrasco DO Primary Care Provider: Russell Zimmerman DO History of Present Illness History of Present Illness Casandra Renee is a 78 year old female presenting to [facility] on the day of admission for planned elective left total knee replacement by Dr. Carrasco. She has had significant left knee pain pain and decreased functionality, with her symptoms escalating over time despite receiving previous injections in her knee and other conservative measures. She also has known osteoarthritis in the right knee but it is not as bad. She tolerated surgery well today with spinal anesthesia. Minimal blood loss. Pain is much better currently after recently receiving medications. Past medical history to note includes alpha-gal syndrome, with specific dietary and medication restrictions. Postoperative pain medications were delayed in part because of this, but have since been addressed. She also has a history of irritable bowel syndrome with constipation. She knows she can take Senokot but is unsure of other bowel regimen medications. She has a documented history of sleep apnea, diagnosed through a formal sleep study, but cannot tolerate CPAP therapy. She has hypothyroidism on levothyroxine. She has recently seen her primary care provider for episodes of dizziness. She has meclizine as needed but the last few days her symptoms have been much better. No recent chest pain or difficulty breathing. With her diagnosis of alpha gal and known hypothyroidism, hospitalist were consulted for assistance with medical management during hospital stay. Review of Systems 2 General: Reports: Other (ROS as per HPI or as noted here) Medications/Allergies Home Medications Medication Instructions Recorded Confirmed Last Taken Type meclizine 25 mg tablet 25 mg PO QID PRN dizziness #30 tabs 06/27/21 05/14/24 05/12/24 Rx levothyroxine 75 mcg tablet 75 mcg PO DAILY 11/08/22 05/14/24 05/18/24 History (Levo-T) left knee medial trans router brace #1 ea 02/14/24 05/18/24 Unknown Rx Allergies Allergy/AdvReac Type Severity Reaction Status Date / Time aspirin Allergy Intermediate ADR-Itching Verified 05/14/24 09:06 Alpha-Gal Allergy ADR-Itching Verified 05/18/24 07:36 ([id number]-2,3-Gala calcium carbonate Allergy ADR-Nausea Verified 05/14/24 09:06 ciprofloxacin [From Cipro] Allergy ADR-Nausea Verified 05/14/24 09:06 shellfish derived Allergy ADR-Nausea Verified 05/14/24 09:06 Current Medications Generic Name Dose Route Start Last Admin Trade Name Freq PRN Reason Stop Dose Admin Chlorhexidine Gluconate 30 ml 05/18/24 13:11 05/18/24 16:12 Chlorhexidine Gluconate 0.12% Btl 473 Ml MUCOUS MEM 30 ml QID TIM Administration Hydromorphone HCl 0.5 mg 05/18/24 13:11 05/18/24 14:02 Hydromorphone 1 Mg/Ml Inj 1 Ml IVP 0.5 mg Q4H PRN Administration BREAKTHROUGH PAIN Acetaminophen 1,000 mg in 100 mls @ 400 mls/hr 05/18/24 16:00 05/18/24 16:12 Acetaminophen IV 05/19/24 08:14 400 mls/hr Q8H TIM Administration Lactated Ringer's 1,000 mls @ 100 mls/hr 05/18/24 13:11 05/18/24 13:33 Lactated Ringers IV 100 mls/hr .Q10H TIM Administration PFSH Acute 2 PFSH: Medical History (Updated 05/18/24 @ 16:43 by Nancy Benites MD) ELIU (obstructive sleep apnea) 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% Aortic dilatation 10/2023: ascending aorta 3.99cm, no aneurysm on imaging, thoracic aorta 3.5cm Small vessel disease, cerebrovascular Arthritis Irritable bowel syndrome with both constipation and diarrhea Allergy to alpha-gal Lacunar infarction Hypothyroidism BPPV (benign paroxysmal positional vertigo) Surgical History (Updated 05/18/24 @ 17:37 by Nancy Benites MD) H/O partial thyroidectomy Social History Smoking and tobacco/nicotine status: never used tobacco/nicotine Alcohol intake: never Vitals/I&O/Wt Last Vital Signs Temp 97.5 F L 05/18/24 13:10 Pulse 77 05/18/24 15:15 Resp 18 05/18/24 15:15 BP 119/57 05/18/24 13:10 Pulse Ox 99 05/18/24 15:15 O2 Del Method Nasal Cannula 05/18/24 15:15 O2 Flow Rate 1 05/18/24 15:15 05/18/24 05/18/24 05/18/24 06:59 14:59 22:59 Intake Total 1254.5 / 1254.5 Output Total 620 / 620 Balance 634.5 / 634.5 Weight last 48 hrs Weight 80.286 kg Physical Exam 2 Narrative: Patient is awake and alert, able to provide history. Extraocular movements are intact. Face is symmetric. Speech is clear. Neck is supple. Lungs are clear to auscultation bilaterally. Cardiovascular exam reveals a regular rate and rhythm. Abdomen is soft, nontender. Left lower extremity has postoperative dressings in place. Can move toes of both feet. Urinary Catheter Management: Bailon Latex: Cath Placed During This Visit: yes Urinary Catheter Date of Insertion: 05/18/24 Urinary Catheter Time of Insertion: 10:45 Data 05/18/24 07:23 05/18/24 07:23 A&P Assessment and plan (1) Status post total left knee replacement using cement: POD 0 - Plan as per Dr Carrasco - Pain control > hydrocodone liquid, IV acetaminophen, IV hydromorphone - Arixtra for DVT prophlaxis due to Alphagal - PT eval - Periop antibiotics - Status post tranexamic acid - Bailon to come out - Incentive spirometer (2) Allergy to alpha-gal: - Aware, notified pharmacy, discussed with them and medications have been adjusted with awareness of diagnosis. - Will need to address with discharge medications also (3) Ventricular hypokinesis: - Echo with EF 45-50%, was incidental finding on workup for dizziness and other symptoms. Follows with cardiology and is known to have dilated ascending aorta also. Not on focused treatment and being monitored as not showing definite cardiac symptoms attributable the these findings. - Monitor volume status and for signs and symptoms of fluid overload during perioperative course. (4) ELIU (obstructive sleep apnea): - Not on CPAP or other therapy, denies significant daytime symptoms or definitive ongoing snoring after weight loss the last few years. - Oxygen prn with sleep (5) Hypothyroidism: - On chronic levothyroxine which I will continue Qualifiers: Hypothyroidism type: acquired Qualified Code(s): E03.9 - Hypothyroidism, unspecified (6) Dizziness: - Currently on meclizine as needed, has been seen by PCP, cardiology and neurology. Had cardiac workup to include stress testing, CTA chest, echo in September and October 2023, carotid US in 2022 along with MRI head. Noted on one study in the past to have a small mass on pituitary not seen on follow up study. Has has had prior diagnosis of BPPV but symptoms are different currently. - Monitor for impact of surgery and pain medications on symptoms, extra caution with position changes. (7) Small vessel disease, cerebrovascular: - Lacunar infarctions noted on prior imaging, not on any chronic management - Monitor postoperatively for any neurological symptoms, particularly with recent issues of increased dizziness Plan History of IBS with constipation and diarrhea, Senokot and Metamucil are generally okay as are bisacodyl suppositories, all of which are ordered, will monitor for worsening symptoms VTE prophylaxis: Arixtra Antibiotics: s/p vancomycin x 1, cefazolin periop dosing Pending studies: am labs Telemetry: not currently indicated Bailon: order to remove in place Line(s): peripheral IVs Disposition plan: Home with outpatient follow up to PCP and Ortho, home health. Prescriptions have been written for Arixtra, Senokot, Metamucil and bisacodyl. Explained to patient that she can also take specific Tylenol brand that is acceptable for patients with alpha gal. Narcotic pain medication to be written by orthopedics after we see how she responds to the liquid hydrocodone currently ordered. Code Status: Full Code Supportive care otherwise Findings, concerns and plans were discussed with patient and she was given an opportunity to ask questions Consult Attestations 2 Medical Necessity Statement: as per attending Diagnoses Status post total left knee replacement using cement Z96.652 Allergy to alpha-gal Z91.018 Ventricular hypokinesis I51.89 ELIU (obstructive sleep apnea) G47.33 Acquired hypothyroidism E03.9 Hypothyroidism type: acquired Dizziness R42 Small vessel disease, cerebrovascular I67.9
[2024-05-18] MEDS: mupirocin oint 22 gm 1 APPLIC NASAL (17:35)
[2024-05-18] MEDS: HYDROcodone-APAP 7.5-325 mg/15 mL UDC PO (17:36)
[2024-05-18] MEDS: tranexamic acid 1,000 MG/100 ML PREMIX 600 MG IV (17:37)
[2024-05-18] MEDS: psyllium powder Pkt 1 PACKET PO (18:01)
[2024-05-18] MEDS: sennosides 8.6 mg Tablet 17.2 MG PO (20:24)
[2024-05-19] VITALS: BP 93/55; PULSE 57; RESP 16; TEMP 36.4; O2SAT 96
[2024-05-19] MEDS: ceFAZolin 2,000 mg SDV 2000 MG IVP ×2 (01:30→10:09)
[2024-05-19 04:00] VITALS: BP 100/56; PULSE 53; RESP 18; TEMP 36.4; O2SAT 92
[2024-05-19 05:12] LABS: Basophils % 0.1 %; Hematocrit 32.5 % (36-47); Lymphocytes # 0.7 10^3/uL (0.8-4.8); Lymphocytes % 7.9 %; Mean Corpuscular HGB Conc 33.5 g/dL (30-55); Mean Corpuscular Hemoglobin 32.5 pg (27-33); Mean Platelet Volume 9.8 fL (7.4-10.4); Monocytes # 0.4 10^3/uL (0.2-0.9); Monocytes % 4.1 %; Neutrophils # 8.11 10^3/uL (1.8-7.7); Neutrophils % 87.5 %; Nucleated Red Blood Cells % 0 %; Platelet Count 174 10^3/cmm (157-399); Red Blood Count 3.35 10^6/uL (3.85-5.65); Red Cell Distribution Width 12.7 % (12.1-15.1); White Blood Count 9.27 10^3/uL (3.29-11.43)
[2024-05-19 05:36] LABS: Anion Gap 12.1 (5-19); Blood Urea Nitrogen 16 mg/dL (8-23); Calcium 7.6 mg/dL (8.5-10.5); Carbon Dioxide 20 mmol/L (22-29); Chloride 110 mmol/L (98-107); Glucose 121 mg/dL (65-115); Osmolality Calculated 288 mOsm/kg (285-295); Potassium 4.1 mmol/L (3.5-5.1); Sodium 138 mmol/L (136-145)
[2024-05-19 08:00] VITALS: BP 102/59; PULSE 52; RESP 17; TEMP 36.5; O2SAT 100
[2024-05-19] MEDS: acetaminophen 1,000 MG/100 ML PIGGYBACK 400 MG IV (08:28)
[2024-05-19] MEDS: chlorhexidine gluconate 0.12% Btl 473 mL 30 ML MUCOUS MEM (08:39)
[2024-05-19] MEDS: fondaparinux 2.5 mg/0.5 mL Syringe SUBCUT (08:40)
[2024-05-19] MEDS: psyllium powder Pkt 1 PACKET PO (08:42)
[2024-05-19] MEDS: mupirocin oint 22 gm 1 APPLIC NASAL (08:42)
--- NOTE | 2024-05-19 09:38 | PC.CHAP ---
Pastoral Care Encounter/Spiritual Assessment Type of Contact [] Declined drafter cartographic visit [] Patient/Family/Request visit [] Outpatient visit [] Follow-up visit [] Physician referral [] Code/Alert [] Routine visit [] Staff referral [] Actively dying [] Patient sleeping [] Family support [] [] Out of room [] Palliative care [] [x] Receiving care in room [] Pre-surgical visit [] Trauma [] Long length of stay [] ICU visit [] Other: Relational/Emotional Strength [] Patient feels connected with others/family/visitors/staff [] Distress [] Loneliness/isolation [] Abandonment Spirituality of Patient [] Person of Shirley [] Attends Mandaeism of their [place] [] Believes in Prayer [] Reads Bible or Faith materials [] There are Spiritual issues to be addressed Carrot Harvester Interventions [] Prayer [] Active listening [] Non-anxious presence [] Spiritual/emotional support [] Crisis/trauma care [] Spiritual counseling [] Bereavement support [] Provided bereavement packet [] Provided Bible/devotional materials [] Provided toy/stuffed animal, coloring book to patient or family member [] Provided Communion [] Anointing/[place] [] Salvation [] Completed spiritual assessment [] Other: Impact on Illness or Injury [] Angry [] Fearful [] Anxious [] Often cries [] Exhaustion [] Unable to work [] Unable to attend restorationist [] Unable to walk/stand [] Unable to read [] Unable to drive [] Unable to eat/drink [] Unable to sleep [] Unable to be with family [] Patient intubated [] Other: Summary Time spent with patient
--- NOTE | 2024-05-19 11:53 | PM.DCS ---
Discharge Providers Date of Admission: 05/18/24 12:40 Date of Discharge: May 19, 2024 Attending Provider at Admission: Elian Carrasco DO Attending Provider at Discharge: Elian Carrasco DO Consults: Dr. Benites?hospitalist Primary Care Provider: Russell Zimmerman DO Diagnoses at Discharge Discharge Diagnosis (1) Status post total left knee replacement using cement: Status: Acute Permanent problem details: Dr Danilo Jacques (2) Allergy to alpha-gal: Status: Chronic (3) Ventricular hypokinesis: Status: Chronic Permanent problem details: left ventricular dysfunction with EF 45-50% (4) ELIU (obstructive sleep apnea): Status: Acute (5) Hypothyroidism: Status: Chronic Qualifiers: Hypothyroidism type: acquired Qualified Code(s): E03.9 - Hypothyroidism, unspecified (6) Dizziness: Status: Acute (7) Small vessel disease, cerebrovascular: Status: Chronic Reason for Visit Reason for Visit: M17.12 Brief History: Status post left TKA Hospital Course Hospital Course Patient presented to the preoperative holding area with plan for left total knee arthroplasty after patient has been worked up in the outpatient setting for failed conservative treatment of left knee degenerative joint disease. Once cleared by anesthesia for surgery patient subsequently was taken back to the operative suite underwent anesthesia per anesthesia department and then subsequently underwent a left total knee arthroplasty. Procedure was performed without any complications patient was taken to PACU in stable condition patient recovered well in PACU and then was admitted to the floor postoperatively internal medicine was consulted and on board for medical management and assistance with care. Patient received appropriate PT/OT, postoperative antibiotics, postoperative TXA, pain control, postoperative DVT prophylaxis. Elevation and ice. Patient encouraged for knee range of motion allowed weightbearing as tolerated to the operative lower extremity. Dressing was changed as needed, labs were monitored daily. Patient recovered well postoperatively and worked well and progressed well with therapy. Patient has alpha gal allergy and hospitalist team assisted with adjustments on appropriate pain medication and other medications to accommodate for alpha gal. It was determined on postoperative day [ ] the patient was stable for discharge from an orthopedic standpoint and medicine. Patient was comfortable with discharge and plan was discharged home. Patient received appropriate discharge instructions as well as pain medication and DVT prophylaxis postoperatively. Given appropriate instructions for dressing management. Patient will follow-up with Dr. Carrasco/orthopedics in the office in 2 weeks. All questions answered. Understand if there is any issues questions or concerns and contact the office. Physical Exam Narrative: Left knee examination demonstrates dressings on in place are clean dry and intact compartments are soft compressible normal postoperative swelling and tenderness palpation about the left knee. Patient's calf soft nontender. Patient is able to wiggle the toes plantarflex and dorsiflex ankle, sensations intact light touch distally distal pulses are palpable Urinary Catheter Management: Bailon Latex: Cath Placed During This Visit: yes Urinary Catheter Date of Insertion: 05/18/24 Urinary Catheter Time of Insertion: 10:45 Discharge Data Studies Completed and Pending Completed Studies During Hospitalization Category Date Time Status XR knee LT 1-2V [id number] Routine Exams 05/18/24 12:36 Completed Pending at discharge Category Date Time Status Basic Metabolic Panel AM LABS Lab 05/20/24 04:00 Ordered Basic Metabolic Panel AM LABS Lab 05/21/24 04:00 Ordered Complete Blood Count w/Auto AM LABS Lab 05/20/24 04:00 Ordered Complete Blood Count w/Auto AM LABS Lab 05/21/24 04:00 Ordered Radiology Impressions Knee X-Ray 05/18/24 12:36 IMPRESSION: 1. LEFT total knee replacement in excellent position. Laboratory Results WBC 9.27 10^3/uL (3.29-11.43) 05/19/24 04:51 RBC 3.35 10^6/uL (3.85-5.65) L 05/19/24 04:51 Hgb 10.90 g/dL (11.27-16.99) L 05/19/24 04:51 Hct 32.5 % (36-47) L 05/19/24 04:51 MCV 97.0 fl (85-98) 05/19/24 04:51 MCH 32.5 pg (27-33) 05/19/24 04:51 MCHC 33.5 g/dL (30-55) 05/19/24 04:51 RDW 12.7 % (12.1-15.1) 05/19/24 04:51 Plt Count 174 10^3/cmm (157-399) 05/19/24 04:51 MPV 9.8 fL (7.4-10.4) 05/19/24 04:51 Neut % (Auto) 87.5 % 05/19/24 04:51 Lymph % (Auto) 7.9 % 05/19/24 04:51 [place] % (Auto) 4.1 % 05/19/24 04:51 Eos % (Auto) 0.0 % 05/19/24 04:51 Baso % (Auto) 0.1 % 05/19/24 04:51 Neut # (Auto) 8.11 10^3/uL (1.8-7.7) H 05/19/24 04:51 Lymph # (Auto) 0.7 10^3/uL (0.8-4.8) L 05/19/24 04:51 [place] # (Auto) 0.4 10^3/uL (0.2-0.9) 05/19/24 04:51 Eos # (Auto) 0.0 10^3/uL (0.0-0.8) 05/19/24 04:51 Baso # (Auto) 0.0 10^3/uL (0.0-0.1) 05/19/24 04:51 Nucleated RBC % (auto) 0 % 05/19/24 04:51 Nucleated RBCs # 0.0 /100WBC 05/19/24 04:51 Sodium 138 mmol/L (136-145) 05/19/24 04:51 Potassium 4.1 mmol/L (3.5-5.1) 05/19/24 04:51 Chloride 110 mmol/L (98-107) H 05/19/24 04:51 Carbon Dioxide 20 mmol/L (22-29) L 05/19/24 04:51 Anion Gap 12.1 (5-19) 05/19/24 04:51 BUN 16 mg/dL (8-23) 05/19/24 04:51 Creatinine 0.8 mg/dL (0.5-0.9) 05/19/24 04:51 GFR Calculation Not Reportable 05/19/24 04:51 Glucose 121 mg/dL (65-115) H 05/19/24 04:51 Calculated Osmolality 288 mOsm/kg (285-295) 05/19/24 04:51 Calcium 7.6 mg/dL (8.5-10.5) L 05/19/24 04:51 Blood Type A Positive 05/18/24 07:52 Rho(D) Type Rh positive 05/18/24 07:52 Antibody Screen Negative 05/18/24 07:52 Vitals Last Vital Signs Temp 97.7 F 05/19/24 08:00 Pulse 52 L 05/19/24 08:00 Resp 17 05/19/24 08:00 BP 102/59 05/19/24 08:00 Pulse Ox 100 05/19/24 08:00 O2 Del Method Room Air 05/19/24 08:00 O2 Flow Rate 1 05/18/24 15:15 Discharge Plan Discharge Patient Disposition: Home Health Service Condition: Stable Prescriptions: New fondaparinux 2.5 mg/0.5 mL syringe 2.5 mg SUBCUT DAILY 14 Days Qty: 14 0RF sennosides [senna] 8.6 mg Tablet 17.2 mg PO BEDTIME Qty: 60 0RF bisacodyl 10 mg Suppository 10 mg [facility] DAILY PRN (Reason: CONSTIPATION) Qty: 30 0RF Metamucil (with sugar) 3.4 gram Powder In Packet 1 ea PO BID Qty: 60 0RF Continued levothyroxine [Levo-T] 75 mcg tablet 75 mcg PO DAILY meclizine 25 mg tablet 25 mg PO QID PRN (Reason: dizziness) Qty: 30 0RF Discontinued (DME) left knee medial bilingual inside sales representative brace See Rx Instructions .Route .MEDSUPPLY Qty: 1 0RF Rx Instructions: As directed Discharge Orders: Discharge Order (Routine); Ordered 05/19/24 Ordered By: Elian Carrasco Referrals: [facility]) [Outside] Yves Carrasco PA [Physician Sales Support Coordinator] - 06/02/24 1:45 pm Russell Zimmerman, [Primary Care Provider] - (We have notified your physician's clinic of the need for a follow-up appointment to be scheduled. If you have not heard from them within the next 2 business days, please call them directly. ) Discharge Diet: Regular Discharge Activity: Limit activity as instructed and Use walker/crutches as instructed Patient Instructions: Hydrocodone/Acetaminophen (By mouth), Fondaparinux (By injection), Acute Wound Care (DC), Total Knee Replacement (GEN), Opioid Safety, Post Anesthesia Care Activity Restrictions/Additional Instructions: Orthopedic discharge instructions Keep incisions clean dry and intact, leave Silverlon bandage dressings on in place for 7 days after that may rinse incisions with warm soapy water pat dry and redress with a dry dressing. Patient may weight-bear as tolerate to the operative extremity Utilize walker as needed Encourage knee range of motion Ice and elevate as needed for pain and swelling Take pain medication as prescribed Take antinausea medication as needed Pain medication can cause constipation. Take stool softeners as prescribed Take prescribed Atrixra as prescribed for the next 14 days for blood clot prevention May supplement for pain with ibuprofen [id number] as needed No baths or soaks Follow-up in the orthopedic office in 2 weeks Contact the office for any questions or concerns Discharge Attestations Time Spent in Discharge Care*: less than 30 min Quality Metrics Clinical Quality Measures [ No reported AMI, CVA or VTE this stay] Coding Level of Care Code Acute Code for Chg Fwd Diagnoses Status post total left knee replacement using cement Z96.652 Allergy to alpha-gal Z91.018 Ventricular hypokinesis I51.89 ELIU (obstructive sleep apnea) G47.33 Acquired hypothyroidism E03.9 Hypothyroidism type: acquired Dizziness R42 Small vessel disease, cerebrovascular I67.9
[2024-05-19 12:00] VITALS: BP 101/62; PULSE 46; RESP 16; TEMP 36.4; O2SAT 99
[2024-05-19] MEDS: HYDROcodone-APAP 7.5-325 mg/15 mL UDC PO (12:20)
--- NOTE | 2024-05-19 12:32 | P.PN_ITS ---
Vitals/I&O/Wt Last Vital Signs Temp 97.5 F L 05/19/24 12:00 Pulse 46 L 05/19/24 12:00 Resp 16 05/19/24 12:00 BP 101/62 05/19/24 12:00 Pulse Ox 99 05/19/24 12:00 O2 Del Method Room Air 05/19/24 12:00 O2 Flow Rate 1 05/18/24 15:15 05/18/24 05/19/24 05/19/24 22:59 06:59 14:59 Intake Total 560 / 1814.5 1088.333 / 2902.833 340 / 340 Output Total 850 / 1470 450 / 1920 Balance -290 / 344.5 638.333 / 982.833 340 / 340 Weight last 48 hrs Weight 84.368 kg Weight 80.286 kg Physical Exam 2 Urinary Catheter Management: Bailon Latex: Cath Placed During This Visit: yes Urinary Catheter Date of Insertion: 05/18/24 Urinary Catheter Time of Insertion: 10:45 Data 05/19/24 04:51 05/19/24 04:51 Coding Level of Care Code Acute Code for Chg Fwd
[2024-05-19 12:39] VITALS: BP 101/62; PULSE 52; O2SAT 99
== END 2024-05-19 12:41 | disposition home health service (06) ==
LOC: MEDSURG 12:43
PROVIDERS: Physician Assistant; Admitting Provider Student in an Organized Health Care Education/Training Program; PCP Family Medicine; Visit Provider Student in an Organized Health Care Education/Training Program
PROC: 8E0Y0CZ Robotic Assisted Procedure of Lower Extremity, Open Approach (ICD-10-PCS; CPT 27447; principal; 2024-05-18 09:45)
DX: M17.12 Unilateral primary osteoarthritis, left knee (principal); Z91.018 Allergy to other foods; I51.89 Other ill-defined heart diseases; G47.33 Obstructive sleep apnea (adult) (pediatric); E03.9 Hypothyroidism, unspecified; R42 Dizziness and giddiness; I67.9 Cerebrovascular disease, unspecified
CPT/HCPCS: 27447; 20985; 36415; 51702; 73560; 80048; 85025; 86850; 86900; 96372; 97110; 97116; 97161; 97165; C1776; G0378; J0131; J0171; J0690; J1100; J1171; J1652; J1885; J2250; J2704; J2795; J7030; J7120

== ENCOUNTER → 2024-06-02 13:23 | Outpatient (BNVA) | payer MEDICARE, OTHER, SELFPAY | PROVIDERS: PCP Family Medicine; Visit Provider Physician Assistant | DX: Z96.652 Presence of left artificial knee joint (principal) | CPT/HCPCS: 73560; 73565; 99024 ==

== ENCOUNTER 2024-06-10 06:00 | Outpatient (RCR) | payer MEDICARE, OTHER, SELFPAY | END 2024-06-30 23:59 | disposition home or self-care (01) | LOC: APT 06:00 | PROVIDERS: Visit Provider Student in an Organized Health Care Education/Training Program | DX: Z47.1 Aftercare following joint replacement surgery (principal); Z96.652 Presence of left artificial knee joint | CPT/HCPCS: 97110; 97140; 97162; 97530 ==

== ENCOUNTER 2024-06-15 10:45 | Outpatient (CLI) | payer MEDICARE, OTHER, SELFPAY ==
--- NOTE | 2024-06-15 11:00 | MR_ITS ---
WS: [id number] MRI BRAIN WITH AND WITHOUT CONTRAST HISTORY: R93.0 - Abnormal findings on diagnostic imaging of skull ... COMPARISON: 09/19/2022, 06/25/2022 TECHNIQUE: Multiplanar imaging performed through the brain with MultiHance 16 ml's IV. There is a single tiny focus of diffusion abnormality in the posterior LEFT parietal cortex. No corre sponding edema on the FLAIR sequence. Suspect this may very well be an artifact. Tiny lacunar infarct is not completely excluded but thought less likely. Scattered T2 and FLAIR signal hyperintensities, bilateral are symmetric and similar to 09/19/2022. No infarct. Mild symmetric cerebral and cerebellar atrophy. No prior hemorrhage. Small lacunar infarct RIGHT cerebellum is stable. Ventricles and extra-axial spaces are normal. Clivus and pituitary gland are normal. Visualized posterior fossa and brainstem are also normal. Postcontrast images are negative for masses or vascular malformations. Dural venous sinuses are normal. Paranasal sinuses: Well aerated with no significant disease. Mastoid air cells: Normal. Calvarium and scalp: Normal. MR/MR head wo/w con [id number] IMPRESSION: 1. Tiny diffusion abnormality in the LEFT posterior parietal cortex. Favor thi s is an artifact versus tiny lacunar infarct. No corresponding edema seen on th e FLAIR or T2 sequence. 2. Mild small vessel changes with mild cerebral atrophy. 3. Remote RIGHT cerebellar lacunar infarct. 4. No enhancing masses.
== END 2024-06-15 10:46 | disposition home or self-care (01) ==
LOC: RAD 10:46
PROVIDERS: PCP Family Medicine; Visit Provider Family Medicine
DX: I63.81 Other cerebral infarction due to occlusion or stenosis of small artery (principal); R93.0 Abnormal findings on diagnostic imaging of skull and head, not elsewhere classified
CPT/HCPCS: 70553; A9577

== ENCOUNTER → 2024-06-18 09:26 | Outpatient (BNVA) | payer MEDICARE, OTHER, SELFPAY | PROVIDERS: PCP Family Medicine; Visit Provider Family Medicine | DX: E83.51 Hypocalcemia (principal); D64.9 Anemia, unspecified | CPT/HCPCS: 80053; 85025 ==

== ENCOUNTER 2024-07-01 06:00 | Outpatient (RCR) | payer MEDICARE, OTHER, SELFPAY | END 2024-07-31 23:59 | disposition home or self-care (01) | LOC: APT 06:00 | PROVIDERS: PCP Family Medicine; Visit Provider Student in an Organized Health Care Education/Training Program | DX: Z47.1 Aftercare following joint replacement surgery (principal); Z96.652 Presence of left artificial knee joint | CPT/HCPCS: 97110; 97116; 97140; 97530 ==

== ENCOUNTER → 2024-07-14 13:30 | Outpatient (BNVA) | payer MEDICARE, OTHER, SELFPAY | PROVIDERS: PCP Family Medicine; Visit Provider Physician Assistant | DX: Z96.652 Presence of left artificial knee joint (principal) | CPT/HCPCS: 73560; 73565; 99024 ==

== ENCOUNTER 2024-08-01 06:30 | Outpatient (RCR) | payer MEDICARE, OTHER, SELFPAY | END 2024-08-28 23:59 | disposition home or self-care (01) | LOC: APT 06:30 | PROVIDERS: PCP Family Medicine; Visit Provider Student in an Organized Health Care Education/Training Program | DX: Z47.1 Aftercare following joint replacement surgery (principal); Z96.652 Presence of left artificial knee joint | CPT/HCPCS: 97110; 97140; 97530 ==

== ENCOUNTER → 2024-08-11 13:06 | Outpatient (BNVA) | payer MEDICARE, OTHER, SELFPAY | PROVIDERS: PCP Family Medicine; Visit Provider Physician Assistant | DX: Z96.652 Presence of left artificial knee joint (principal) | CPT/HCPCS: 99024 ==

== ENCOUNTER → 2024-08-24 09:50 | Outpatient (BNVA) | payer MEDICARE, OTHER, SELFPAY | PROVIDERS: PCP Family Medicine; Visit Provider Family Medicine | DX: E03.9 Hypothyroidism, unspecified (principal); G47.33 Obstructive sleep apnea (adult) (pediatric); I63.81 Other cerebral infarction due to occlusion or stenosis of small artery; G25.81 Restless legs syndrome; Z86.73 Personal history of transient ischemic attack (TIA), and cerebral infarction without residual deficits | CPT/HCPCS: 80053; 83735; 84443; 85025 ==

== ENCOUNTER 2024-08-29 06:00 | Outpatient (RCR) | payer MEDICARE, OTHER, SELFPAY | END 2024-09-28 23:59 | disposition home or self-care (01) | LOC: APT 06:00 | PROVIDERS: PCP Family Medicine; Visit Provider Student in an Organized Health Care Education/Training Program | DX: Z47.1 Aftercare following joint replacement surgery (principal); Z96.652 Presence of left artificial knee joint | CPT/HCPCS: 97110; 97112; 97530 ==

== ENCOUNTER 2024-09-08 11:16 | Outpatient (CLI) | payer MEDICARE, OTHER, SELFPAY | END 2024-09-08 11:17 | disposition home or self-care (01) | LOC: SLEEP 11:18 | PROVIDERS: PCP Family Medicine; Visit Provider Family Medicine | DX: G47.33 Obstructive sleep apnea (adult) (pediatric) (principal) | CPT/HCPCS: 94762 ==

== ENCOUNTER → 2024-11-09 08:19 | Outpatient (BNVA) | payer MEDICARE, OTHER, SELFPAY | PROVIDERS: PCP Family Medicine; Referring Provider Family Medicine; Visit Provider Psychiatry & Neurology Neurology | DX: Z86.73 Personal history of transient ischemic attack (TIA), and cerebral infarction without residual deficits (principal); R93.0 Abnormal findings on diagnostic imaging of skull and head, not elsewhere classified; R41.89 Other symptoms and signs involving cognitive functions and awareness; H53.9 Unspecified visual disturbance | CPT/HCPCS: 99203 ==

== ENCOUNTER → 2024-11-10 11:03 | Outpatient (BNVA) | payer MEDICARE, OTHER, SELFPAY | PROVIDERS: PCP Family Medicine; Visit Provider Physician Assistant | DX: Z96.652 Presence of left artificial knee joint (principal) | CPT/HCPCS: 73560; 73565; 99213 ==

== ENCOUNTER → 2024-11-11 11:35 | Outpatient (BNVA) | payer MEDICARE, OTHER, SELFPAY | PROVIDERS: PCP Family Medicine; Visit Provider Psychiatry & Neurology Neurology | DX: R79.89 Other specified abnormal findings of blood chemistry (principal) | CPT/HCPCS: 80061 ==

== ENCOUNTER 2024-11-17 08:51 | Outpatient (CLI) | payer MEDICARE, OTHER, SELFPAY ==
--- NOTE | 2024-11-17 09:15 | MR_ITS ---
WS: [id number] MRA CAROTID ARTERIES HISTORY: Z86.73 - Personal history of transient ischemic attack (T... COMPARISON: None available. TECHNIQUE: MRA is performed with intravenous gadolinium. MIP and source images are reviewed. Right: Normal cervical carotid artery. Bifurcation is intact with no stenosis. Left: Normal cervical carotid artery. Bifurcation is intact with no stenosis. Bovine arch. Subclavian Arteries: Normal. Vertebral Arteries: LEFT vertebral artery arises from the arch. RIGHT vertebral artery is patent and slightly dominant. MR/MR angio neck w con* [id number] IMPRESSION: 1. No cervical carotid artery stenosis or atherosclerotic plaque. 2. Slightly dominant RIGHT vertebral artery is intact. 3. Bovine arch.
--- NOTE | 2024-11-17 10:00 | MR_ITS ---
WS: [id number] MRA ANGIOGRAPHY [place] OF [place] HISTORY: Z86.73 - Personal history of transient ischemic attack (T... COMPARISON: None available. TECHNIQUE: 3-D MR angiography is performed of the [place]. All images are reviewed including source images. Distal vertebral and basilar arteries are intact with no significant stenosis or plaque. Posterior cerebral arteries are normal course and caliber. Posterior communicating arteries are both patent. Intracranial portion of the internal carotid arteries are normal course and caliber. No significant atherosclerosis, stenosis or aneurysm identified. Middle and anterior cerebral arteries are both patent with no significant disease. Anterior communicating artery is also normal. MR/MR angio head wo con [id number] IMPRESSION: Normal MRA [place].
[2024-11-17] MEDS: gadobenate dimeglumine 20 mL vial 16 ML IV (10:36)
== END 2024-11-17 08:52 | disposition home or self-care (01) ==
PROVIDERS: PCP Family Medicine; Visit Provider Psychiatry & Neurology Neurology
DX: Z86.73 Personal history of transient ischemic attack (TIA), and cerebral infarction without residual deficits (principal); R93.0 Abnormal findings on diagnostic imaging of skull and head, not elsewhere classified
CPT/HCPCS: 70544; 70548

== ENCOUNTER → 2024-11-27 10:27 | Outpatient (BNVA) | payer MEDICARE, OTHER, SELFPAY | PROVIDERS: PCP Family Medicine; Visit Provider Internal Medicine | DX: I51.89 Other ill-defined heart diseases (principal); R53.83 Other fatigue | CPT/HCPCS: 99213 ==

== ENCOUNTER 2025-05-11 13:05 | Outpatient (CLI) | payer MEDICARE, OTHER, SELFPAY ==
--- NOTE | 2025-05-11 13:20 | MM_ITS ---
WS: [id number] BILATERAL 3D TOMOSYNTHESIS DIGITAL SCREENING MAMMOGRAPHY WITH CAD CLINICAL INFORMATION: SCREENING HISTORY: Screening mammogram. No current complaints. COMPARISON: 2023 TECHNIQUE: Bilateral CC and MLO views. FINDINGS: Scattered fibroglandular densities bilaterally. No suspicious focal mass, asymmetry, calcifications, or architectural distortion. No evidence of malignancy. Incidental calcifications RIGHT breast MM/MM scr BI tomosynthesis [id number] IMPRESSION: DENSITY: There are scattered areas of fibroglandular density. BI-RADS: 2 - Benign. FOLLOW UP: 1 Year Follow-up Recommend return to annual screening mammography.
== END 2025-05-11 13:06 | disposition home or self-care (01) ==
LOC: MOBLMAM 13:09
PROVIDERS: PCP Family Medicine; Visit Provider Family Medicine
DX: Z12.31 Encounter for screening mammogram for malignant neoplasm of breast (principal); R92.323 Mammographic fibroglandular density, bilateral breasts; R92.1 Mammographic calcification found on diagnostic imaging of breast
CPT/HCPCS: 77063; 77067

== ENCOUNTER → 2025-05-18 10:36 | Outpatient (BNVA) | payer MEDICARE, OTHER, SELFPAY | PROVIDERS: PCP Family Medicine; Visit Provider Physician Assistant | DX: Z47.89 Encounter for other orthopedic aftercare (principal); Z96.652 Presence of left artificial knee joint | CPT/HCPCS: 73560; 73565; 99213 ==

== ENCOUNTER → 2025-05-20 13:07 | Outpatient (BNVA) | payer MEDICARE, OTHER, SELFPAY | PROVIDERS: PCP Family Medicine; Visit Provider Family Medicine | DX: E03.9 Hypothyroidism, unspecified (principal); R41.89 Other symptoms and signs involving cognitive functions and awareness; R42 Dizziness and giddiness; R53.83 Other fatigue; R55 Syncope and collapse | CPT/HCPCS: 80053; 83036; 84443; 85025 ==